=== PATIENT | male | born 1965 | race Caucasian/White ===

== ENCOUNTER 2022-10-29 08:04 | Outpatient (CLI) | payer BC, SELFPAY ==
[2022-10-29 08:28] VITALS: BMI 29.2
--- NOTE | 2022-10-29 08:29 | NMCV_ITS ---
NM lulu perf SPECT r/s* [id number] Jonathan Jett Age: 57 Gender: M : 1965 Exam Date: 10/29/2022 09:11 Ordering Phys: Fortunato Hinojosa DO Technologist: SEBASTIAN Adhikari Exam Location: [facility] Indications: SHORTNESS OF BREATH STRESS TEST Please see separate stress test report in [facility] for full findings IMAGE PROTOCOL Rest/Stress 1 Exercise Day Radiopharmaceutical Dose (mCi) Administration Site Administered by Rest: Tc-99m 10.9 IV SEBASTIAN Unger Sestamibi Stress:Tc-99m 33.0 IV SEBASTIAN Unger Sestamibi Rest: 29-Oct-2022 60 Discovery 630 Stress: 29-Oct-2022 15 Discovery 630 Radiopharmaceutical was injected at 86 % maximum heart rate. Images obtained in supine and prone position. SPECT RESULTS Technical Quality: Excellent Raw Data Analysis: Normal Image Corrections: No attenuation or motion correction applied Summed Stress Score: 7 Summed Rest Score: 3 Summed Difference Score: 5 PERFUSION FINDINGS Small sized reversible perfusion abnormality of moderate severity of basal to mid inferior and basal to mid inferolateral artis on stress images. FUNCTIONAL RESULTS (calculated via Gated SPECT) Stress Image LV EF (%): 82 Stress EDV (mL):118 TID: 0.97 Stress ESV (mL):21 FUNCTIONAL FINDINGS: The left ventricle is normal in size. Transient Ischemia Dilatation of 0.97. The left ventricular ejection fraction is normal with a value of 82%. There seems to be hypokinesis basal inferior wall IMPRESSIONS 1. Small sized reversible perfusion abnormality of moderate severity of basal to mid inferior and basal to mid inferolateral artis. 2. This may represent small area of ischemia in right coronary artery/circumflex artery territory. 3. The left ventricular ejection fraction is normal with a value of 82%. 4. There seems to be hypokinesis basal inferior wall. 5. Excellent exercise tolerance with no EKG changes with exercise. Refer to separate report for details. Jael Young MD (Electronically Signed) Final Date: 05 November 2022 12:36 S
--- NOTE | 2022-10-29 08:29 | ECG_ITS ---
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 Interpretive Statements NAME OF STUDY: EXERCISE SESTAMIBI STRESS TEST INDICATION: Dyspnea on Exertion Baseline blood pressure of 144/80 mm Hg, heart rate 77 beats per minute and oxygen saturation 98%. EKG showed sinus rhythm, normal axis with normal ST-Ts. The patient exercised for 10 minutes 16 seconds on a standard Vipin protocol. Patient attained a maximum heart rate of 151 beats per minute(91 % of the maximum predicted heart rate) with a blood pressure at the peak exercise of 191/126 mm Hg saturation 96%. The EKG at the peak exercise revealed sinus tachycardia with no significant ST-T wave changes. Patient did not have any chest pain or any significant arrhythmis with the exercise During the recovery phase, there were no new changes. Blood pressure at the end of the recovery phase was 166/81 mm Hg with a heart rate of 91 beats per minute and saturation of 98%. CONCLUSION: 1. Normal EKG response to treadmill exercise. 2. No exercise-induced chest pain or cardiac arrhythmia. 3. Excellent exercise tolerance, attained a maximum of 13.5 METs. 4. Baseline hypertension with normal response to exercise. 5. Perfusion scan will be documented separately. Electronically Signed On 11-05-2022 12:31:26 CDT by Jael Young M.D. [email or web address]
[2022-10-29 10:08] VITALS: BP 175/72; PULSE 83
== END 2022-10-29 08:05 | disposition home or self-care (01) ==
LOC: CDL 08:05
PROVIDERS: PCP Internal Medicine; Visit Provider Internal Medicine
DX: R06.09 Other forms of dyspnea (principal); R94.8 Abnormal results of function studies of other organs and systems
CPT/HCPCS: 36415; 78452; 93017; A9500

== ENCOUNTER → 2022-12-16 14:23 | Outpatient (BNVA) | payer BC, SELFPAY | PROVIDERS: PCP Internal Medicine; Visit Provider Internal Medicine | DX: R07.9 Chest pain, unspecified (principal) | CPT/HCPCS: 93005 ==

== ENCOUNTER 2022-12-28 16:47 | Outpatient (CLI) | payer BC, SELFPAY ==
[2022-12-28 17:31] LABS: Basophils % 0.1 %; Eosinophils # 0.1 10^3/uL (0.0-0.8); Eosinophils % 1.8 %; Hematocrit 41.9 % (37-53); Lymphocytes # 1.6 10^3/uL (0.8-4.8); Lymphocytes % 22.5 %; Mean Corpuscular HGB Conc 32.7 g/dL (30-55); Mean Corpuscular Hemoglobin 27.3 pg (27-33); Mean Corpuscular Volume 83.6 fl (82-101); Mean Platelet Volume 10.7 fL (7.4-10.4); Monocytes # 0.6 10^3/uL (0.2-0.9); Monocytes % 8.2 %; Neutrophils # 4.87 10^3/uL (1.8-7.7); Nucleated Red Blood Cells % 0 %; Platelet Count 258 10^3/cmm (157-399); Red Blood Count 5.01 10^6/uL (3.85-5.65); Red Cell Distribution Width 13.4 % (12.1-15.1); White Blood Count 7.28 10^3/uL (3.29-11.43)
[2022-12-28 17:52] LABS: INR 0.97 (0.83-1.21); Prothrombin Time (Patient) 13.2 Seconds (12.0-15.1)
[2022-12-28 17:54] LABS: Blood Urea Nitrogen 21 mg/dL (6-20); Calcium 9.8 mg/dL (8.5-10.5); Carbon Dioxide 25 mmol/L (22-29); Chloride 103 mmol/L (98-107); Glomerular Filtration Rate 172.6 mL/min (90-130); Glucose 173 mg/dL (65-115); Osmolality Calculated 297 mOsm/kg (285-295); Sodium 140 mmol/L (136-145)
== END 2022-12-28 16:48 | disposition home or self-care (01) ==
LOC: LAB 16:50
PROVIDERS: PCP Internal Medicine; Visit Provider Internal Medicine
DX: R07.9 Chest pain, unspecified (principal)
CPT/HCPCS: 80048; 85025; 85610

== ENCOUNTER 2022-12-30 14:06 | Outpatient (CLI) | payer BC, SELFPAY ==
--- NOTE | 2022-12-30 14:30 | USCV_ITS ---
Jonathan Jett Age: 57 Gender: M : 1965 Exam Date: 12/30/2022 14:31 Ordering Phys: Delbert Rick M.D ([email or web address]) Technologist: JUNAID Exam Location: [facility] [place] Indication: SHORTNESS OF BREATH BP: 130 / 80 HR: 84 Rhythm: Sinus Technical Quality: Adequate MEASUREMENTS (Male / Female) Normal Values 2D ECHO LVOT Diameter 2.0 cm LV Ejection Fraction MOD 2C 58.8 % LV Ejection Fraction 2C AL 61.9 % LA Diameter 3.4 cm LA Width 4.0 cm LA Height 4.6 cm RA Width 3.5 cm RA Height 4.8 cm Aorta at Sinotubular Diameter 2.3 cm IVC Diameter 2.0 cm M-MODE Aortic Annulus Diameter 2.8 cm LA Ao Ratio MM 1.1 MV E Point Septal Separation 0.7 cm DOPPLER AV Peak Velocity 141.0 cm/s LVOT Peak Velocity 108.0 cm/s AV Area Cont Eq vti 2.5 cm squared AV Area Cont Eq pk 2.4 cm squared MV Peak Velocity 99.0 cm/s MV Area PHT 3.1 cm squared Mitral E to A Ratio 0.9 MV E' Velocity 36.6 cm/s Mitral E to MV E' Ratio 9.7 Mitral E to LV E' Lateral Ratio 8.6 Mitral E to LV E' Septal Ratio 11.2 TR Peak Velocity 160.9 cm/s TR Peak Gradient 10.4 mmHg TR Mean Velocity 141.8 cm/s TR Mean Gradient 8.3 mmHg TR Velocity Time Integral 38.4 cm TV Peak E Velocity 45.0 cm/s Right Atrial Pressure 3.0 mmHg Pulmonary Artery Systolic Pressu 13.4 mmHg PV Peak Velocity 126.0 cm/s RV Acceleration Time 0.1 s RV Ejection Time 0.3 s RV AcT/ET 0.4 FINDINGS Left Ventricle Left ventricle is normal in size. LV systolic function is normal with EF of 55 to 60%. No regional wall motion abnormalities are seen. Right Ventricle Normal in size and function Right Atrium Normal in size Left Atrium Normal in size Mitral Valve Structurally normal mitral valve. Trace mitral regurgitation. Aortic Valve Structurally normal aortic valve. No significant stenosis or regurgitation. Tricuspid Valve Mild tricuspid regurgitation. Insufficient TR jet to evaluate RVSP. Pulmonic Valve Not well visualized Pericardium Normal Aorta Normal in size IVC Appears to be normal CONCLUSIONS LV systolic function is normal with EF of 55 to 60%. Trace mitral regurgitation Mild tricuspid regurgitation. No comparison studies are available Delbert Rick MD (Electronically Signed) Final Date: 03 January 2023 14:44 S
== END 2022-12-30 14:07 | disposition home or self-care (01) ==
PROVIDERS: PCP Internal Medicine; Visit Provider Internal Medicine
DX: R06.02 Shortness of breath (principal); I07.1 Rheumatic tricuspid insufficiency
CPT/HCPCS: 93306

== ENCOUNTER 2022-12-31 05:59 | Outpatient (CLI) | payer BC, SELFPAY ==
[2022-12-31] VITALS (8 sets, daily range): BP systolic 140–169; BP diastolic 80–101; PULSE 67–89; RESP 12–21; TEMP 36.7; O2SAT 97–99
--- NOTE | 2022-12-31 06:00 | XACV_ITS ---
Exam Room: 2 Ht: 193 cm Wt: 115 kg BSA: 2.51 m2 Gender: Male : 1965 Any Known Allergies: Other Exam Priority: Routine Procedure(s): Procedure Description: Diagnostic procedure Procedure Description: PCI procedure Procedure Description: Drug Eluting Coronary Stent Procedure Description: PTCA Procedure Description: Miscellaneous Procedure Description: ACT Procedure Description: Coronary Angiography Diagnostic Cath Status: Elective Diagnostic Findings * INDICATION: Chest pain/abnormal stress test. * Left Main has no significant disease. * Circumflex artery has distal diffuse disease. * Mid Left Anterior Descending: minimal 30% stenosis, SIS: 3 flow. * Proximal Right Coronary Artery to Mid Right Coronary Artery: critical 95% stenosis, SIS: 3 flow. * Mid Right Coronary Artery: obstructive 70% stenosis, SIS: 3 flow. * First Obtuse Marginal Branch Segment: severe 90% stenosis, SIS: 3 flow. * Coronary angiography shows right dominance. PCI Status: Elective PCI Indication: Other Interventional Findings * PROCEDURE DETAIL: We engaged RCA with JR4 guide catheter. IV heparin was administered to maintain anticoagulation. 0.014 run-through guidewire was used to cross the RCA stenosis and was put in distal vessel. We predilated proximal artery stenosis with 2.5 x 12 mm semicompliant balloon. This was followed by placement of 3.5 x 15 mm resolute Leland drug-eluting stent. We postdilated the stent with 3.5 x 12 mm NC balloon. We then turned our attention to OM stenosis. XB 3.5 guide catheter was used to engage the left main artery. Run-through wire was used to cross OM stenosis. We then put a 2.5 x 12 mm resolute Phyllis drug-eluting stent. At this time a final angiogram was performed that showed excellent stent expansion, no residual stenosis in SIS-3 flow. Guidewire and guide catheter were removed. 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 * Proximal Right Coronary Artery to Mid Right Coronary Artery: 95% stenosis treated with a AB TREK 2.50X12 RX BALLOON, MDT R PHYLLIS 3.5X15 AV, and MDT NC EUPHORA RX 3.38M06IM BALLOON. 0% residual stenosis, SIS: 3 flow. * Mid Right Coronary Artery: 70% stenosis treated with a MDT NC EUPHORA RX 3.16U20LK BALLOON, MDT R PHYLLIS 3.5X15 AV, and MDT NC EUPHORA RX 3.33U99AH BALLOON. 0% residual stenosis, SIS: 3 flow. * First Obtuse Marginal Branch Segment: 90% stenosis treated with a MDT R PHYLLIS 2.5X12 AV. 0% residual stenosis, SIS: 3 flow. Conclusions 1. Critical stenosis of proximal to mid RCA s/p PCI with 1 stent. Severe stenosis of mid RCA s/p successful revascularization with 1 stent.. 2. Severe OM stenosis s/p PCI with 1 stent. 3. Proximal Right Coronary Artery to Mid Right Coronary Artery was treated with a Balloon, Drug Eluting Stent, and Balloon. 4. Mid Right Coronary Artery was treated with a Balloon, Drug Eluting Stent, and Balloon. 5. First Obtuse Marginal Branch Segment was treated with a Drug Eluting Stent. Recommendations * Dual antiplatelet therapy with aspirin and plavix for atleast 1 year. * High intensity statin therapy. * Outpatient cardiology follow up in 4 weeks. Interventional RX Recommendation: PCI w/o planned CABG Diagnostic RX Recommendation: PCI w/o planned CABG Anticoagulation: Heparin Pressures Phase:Rest AO : 142 / 79 ( 104 ) @ 8:37:00 AM 143 / 141 ( 104 ) @ 8:58:00 AM 90 / 54 ( 71 ) @ 9:04:00 AM 93 / 58 ( 75 ) @ 9:11:00 AM 132 / 125 ( 87 ) @ 9:33:00 AM 89 / 60 ( 75 ) @ 9:37:00 AM Clinical Evaluation EBL: 5mL-10mL Procedural Details Procedure Consent Obtained. Current Diagnosis : Chest Pain. Pre-Procedure Time Out. Identified patient by full name and date of as verbalized by the patient/guarantor. Does the consent match the physician's order: Yes. Accurate & Complete Informed Consent: Yes. Inpatient/Outpatient History & Physical on Chart: Yes. If H&P is completed, is and addenduem needed: No; If yes, is the addendum complete: N/A. Visualize and Verify Site with Patient/Guarantor: N/A. Relevant Radiology Images available: Yes. Pre-op teaching completed and patient verbalized understanding. The risks, benefits, and alternatives of sedation and/or procedure were discussed by physician. The patient agrees to continue. Procedure started. [facility] Clinical Fraility Score: 3: Managing Well. Finance Analyst Indications: Worsening Angina. Chest Pain Symptom Assessment: Typical Angina Symptoms. Physician arrived. Physician scrubbed in. Immediate Pre-Procedure Time Out. Correct Patient: Yes; Correct Procedure: Yes; Correct Site: Yes; Correct Patient Position: Yes; Correct Supplies: Yes; Dried Flammable Prep: Yes; Blood Products Available: N/A;. Lidocaine 1% infiltrated to the right radial. Arterial access obtained. A 5 puerto rican TIG catheter in over wire. Catheter removed over the exchange wire. A 5 puerto rican JR4 catheter in over wire. Multiple views taken of right coronary artery. Catheter removed over the exchange wire. A 5 puerto rican JL3.5 catheter in over wire. Baseline sample Acquired. HR: 74 BPM. PERRLA. 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 Lungs clear x 5 lobes. IV Site on Arrival: 20 gauge in the left anticubital. IV Fluids: 0.9% NaCl at KVO. 0 mL infused prior to laboratory clerk. Pre Procedural Pulses: bilateral dorsalis pedis was 3+. Pre Procedural Pulses: bilateral posterior tibial was 3+. Pre Procedural Pulses: bilateral radial was 3+. Oxygen started at 2liters/min via nasal canula. Catheter removed over the exchange wire. A TR Band was successful obtaining hemostatsis at the Right Radial artery insertion site. Lidocaine 1% infiltrated to the right groin. Arterial access obtained with micropuncture set. Lidocaine 1% infiltrated to the right groin. A 5 puerto rican JL3.5 catheter in over wire. Multiple views taken of left coronary artery. Catheter removed over the standard wire. 6 puerto rican JR 4 guide catheter was inserted over the wire. Runthrough guidewire was advanced through the guide catheter to lesion in the prox RCA. Inflation number : 1 A AB TREK 2.50X12 RX BALLOON was prepped and advanced across the Prox RCA , then inflated to 8 ADIA for 0:21 seconds. Balloon out. Inflation Number : 2 A MDT R PHYLLIS 3.5X15 AV -Lot Number# _[id number] EXP: 08/13/2024 was prepped and advanced across the Prox RCA. The stent was deployed at 12 ADIA for 0:22 seconds. Stent balloon out over wire. Results checked. ACT drawn. Results out of range high. seconds. Therapeutic limits - pre-heparin administration 90-150 seconds and monitoring heparin during a vascular procedure >250 seconds. Inflation number : 1 A MDT NC EUPHORA RX 3.74N11ZO BALLOON was prepped and advanced across the Mid RCA , then inflated to 12 ADIA for 0:19 seconds. Inflation number: 2 The MDT NC EUPHORA RX 3.54G28OT BALLOON was reinflated across the Mid RCA, to 15 ADIA for 0:14 seconds. Inflation number: 3 The MDT NC EUPHORA RX 3.14C65GI BALLOON was reinflated across the Prox RCA, to 12 ADIA for 0:16 seconds. Balloon out. Mat Kareem Pugh as monitor. Inflation Number : 3 A MDT R PHYLLIS 3.5X15 AV -Lot Number# [id number] was prepped and advanced across the Mid RCA. The stent was deployed at 12 ADIA for 0:24 seconds. EXP: 08/28/24. Results checked. Stent balloon out over the wire. Inflation number : 4 A MDT NC EUPHORA RX 3.41L22RF BALLOON was prepped and advanced across the Mid RCA , then inflated to 20 ADIA for 0:22 seconds. Inflation number: 5 The MDT NC EUPHORA RX 3.15R91YL BALLOON was reinflated across the Mid RCA, to 12 ADIA for 0:15 seconds. Balloon out. Results checked. ACT drawn. Results 253 seconds. Therapeutic limits - pre-heparin administration 90-150 seconds and monitoring heparin during a vascular procedure >250 seconds. Wire out. Guide catheter out. 6 puerto rican XB 3.5 guide catheter was inserted over the wire. Guide kinked. Removed over the wire. a new 6 puerto rican XB 3.5 guide catheter was inserted over the wire. Unable to advance. Removed over the wire. Sheath exchanged/replaced with a new 6 fr sheath. A Right femoral angiogram was performed. 6 puerto rican XB 3.5 guide catheter was inserted over the wire. Unable to advance. Removed over the wire. a new 6 puerto rican XB 3.5 guide catheter was inserted over the wire. Unable to advance. Removed over the wire. 6 Macedonian cordis sheath exchanged for a 6 fr exchange glidesheath. 6 puerto rican XB 3.5 guide catheter was inserted over the wire. Guide seated in the LCS. Runthrough guidewire was advanced through the guide catheter to lesion in the OM. Guidewire advanced across lesion. Inflation Number : 1 Korin Gruber PHYLLIS 2.5X12 AV -Lot Number# _[id number] EXP: 08/01/2024 was prepped and advanced across the 1st Ob Ana. The stent was deployed at 12 ADIA for 0:22 seconds. Johanny Pugh relieving Mat Kareem as monitor. Stent balloon out over wire. Results checked. Wire out. Results checked. ACT drawn. Results 367 seconds. Therapeutic limits - pre-heparin administration 90-150 seconds and monitoring heparin during a vascular procedure >250 seconds. Guide catheter out. Physician scrubbed out. A Suture was successful obtaining hemostatsis at the Right Femoral artery insertion site. Sheath(s) sutured into position with 2-0 silk and sterile 4x4's and Op-site applied over the site. No oozing or signs and symptoms of hematoma noted. Arterial sheath flushed and connected to tranducer and pressure bag with heparinized saline. Post Procedure: Pulses reassessed and unchanged. PERRLA. 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 No VTE prophylaxis required. Medication's Wasted: Heparin = 2000 units. Total IV fluids: 100 mL. Post-op diagnosis: CAD. Complications: None. Estimated blood loss: 5mL-10mL. Responsiveness - Normal response to verbal stimuli; alert and oriented, PERRLA. Vital chart was stopped. Airway - Unaffected, no intervention required; spontaneous ventilation. Circulation: W/N/L, pulses unchanged. Nausea/Vomiting: No. Procedure completed. Patient transferred by bed to CPRU. Access Site Site: Right Radial artery Sheath Size: 6 Fr Hemostasis Method: TR Band Hemostasis Success: Successful Site: Right Femoral artery Sheath Size: 6 Fr Hemostasis Method: Suture Hemostasis Success: Successful Procedure Medications Start: 7:26 AM Stop: 7:26 AM Medication: Versed Amount: 1 mg Route: I.V. Start: 7:26 AM Stop: 7:26 AM Medication: Fentanyl Amount: 50 mcg Route: I.V. Start: 7:33 AM Stop: 7:33 AM Medication: Versed 1 mg and Fentanyl 25 mcg Amount: 1 Route: I.V. Start: 7:34 AM Stop: 7:34 AM Medication: Nitrogylcerin Amount: 200 mcg Route: I.A. Start: 7:37 AM Stop: 7:37 AM Medication: Heparin Amount: 5000 units Route: I.V. Start: 7:46 AM Stop: 7:46 AM Medication: Nitrogylcerin Amount: 300 mcg Route: I.A. Start: 7:46 AM Stop: 7:46 AM Medication: Fentanyl Amount: 25 mcg Route: I.V. Start: 7:47 AM Stop: 7:47 AM Medication: Versed Amount: 1 mg Route: I.V. Start: 8:02 AM Stop: 8:02 AM Medication: Heparin Amount: 5000 units Route: I.V. Start: 8:29 AM Stop: 8:29 AM Medication: Heparin Amount: 2000 units Route: I.V. Start: 8:34 AM Stop: 8:34 AM Medication: Versed Amount: 1 mg Route: I.V. I, the attending physician, have reviewed and verified all procedure medications. Yes, all medications given per verbal order History/Risk Factors Hypertension: Yes Dyslipidemia: Yes Peripheral Arterial Disease (PAD): No Myocardial Infarction (TX): No Obesity: No Renal Disease: No Tobacco Use: Former Prior Interventions PCI: No CABG: No Valve Surgery: No Report Signatures Finalized by Delbert Rick MD on 01/04/2023 10:47 AM
[2022-12-31] MEDS: aspirin 325 mg Tablet PO (06:15)
[2022-12-31] MEDS: diphenhydrAMINE 50 mg Capsule PO (06:15)
[2022-12-31 07:07] LABS: Glucose Point of Care 131 mg/dL (70-110)
--- NOTE | 2022-12-31 07:24 | P.HPUD_ITS ---
Surgery/Procedure H&P Update DATE OF PROCEDURE: December 31, 2022 DATE H&P PERFORMED: 12/16/22 H&P UPDATE INFORMATION: I have reviewed H&P completed within last 30 days, I have examined patient prior to procedure and No changes to prior documentation PREOP DIAGNOSIS: Chest pain/abnormal stress test PRIMARY INDICATION FOR PROCEDURE: Chest pain/abnormal stress test PLANNED PROCEDURE: Operation Date: 12/31/22 07:00 Proposed Procedures p [facility] 02024,R94.39(Left) - Delbert Rick M.D Possible percutaneous coronary intervention PATIENT REASSESSED PRIOR TO SEDATION, WITH NO CHANGE NOTED: Yes PHYSICAL EXAM: alert, oriented x 3, clear to auscultation bilaterally and regular rate & rhythm AIRWAY EVAL/ANESTHESIA PLAN: normal airway, ASA III, Local Anesthesia, Risks, benefits & alternatives of sedation and/or procedure discussed and Patient agrees to continue as planned ADDITIONAL INFORMATION: Moderate sedation
--- NOTE | 2022-12-31 09:36 | PC.NURSE ---
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 TR Band to patients right wrist clean, dry, et intact. No drainage or hematoma noted. Sheath in place to patients right groin connected to pressure bag. Dsg over sheath clean, dry, et intact. No drainage or hematoma noted. Vital WDL. No c/o pain or discomfort. Will continue to monitor. 0930: Transfer orders received. TR Band to patients right wrist clean, dry, et intact. No drainage or hematoma noted. Sheath in place to patients right groin connected to pressure bag. Dsg over sheath clean, dry, et intact. No drainage or hematoma noted. Vital WDL. No c/o pain or discomfort. Report give to ARNULFO Hernández. Patient transferred to CSU from CPRU via hospital bed. All belongings sent with patient.
--- NOTE | 2022-12-31 09:49 | PM.MISC ---
Miscellaneous Note Purpose of Documentation: Brief procedure note Note: Patient had PCI of proximal and mid RCA with 2 stents. Also had PCI of OM 1 with 1 stent
--- NOTE | 2022-12-31 10:08 | PC.NURSE ---
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 Rick came to bedside v.o. to remove sheath once PTT WNL
[2022-12-31 11:55] LABS: Partial Thromboplastin Time 41.5 SECONDS (23.9-36.7)
[2023-01-01] VITALS: BP 122/75; PULSE 84; RESP 17; TEMP 36.8; O2SAT 96
[2023-01-01 04:00] VITALS: BP 115/70; PULSE 70; RESP 17; TEMP 36.5; O2SAT 92
[2023-01-01 04:25] LABS: Eosinophils # 0.1 10^3/uL (0.0-0.8); Eosinophils % 1.9 %; Lymphocytes # 1.4 10^3/uL (0.8-4.8); Lymphocytes % 20.4 %; Mean Corpuscular HGB Conc 31.9 g/dL (30-55); Mean Corpuscular Hemoglobin 26.7 pg (27-33); Mean Corpuscular Volume 83.7 fl (82-101); Mean Platelet Volume 10.4 fL (7.4-10.4); Monocytes # 0.7 10^3/uL (0.2-0.9); Neutrophils # 4.57 10^3/uL (1.8-7.7); Neutrophils % 67.4 %; Nucleated Red Blood Cells % 0 %; Platelet Count 204 10^3/cmm (157-399); Red Blood Count 5.02 10^6/uL (3.85-5.65); Red Cell Distribution Width 13.4 % (12.1-15.1); White Blood Count 6.78 10^3/uL (3.29-11.43)
[2023-01-01 04:47] LABS: Anion Gap 12.9 (5-19); Blood Urea Nitrogen 15 mg/dL (6-20); Calcium 9.1 mg/dL (8.5-10.5); Carbon Dioxide 27 mmol/L (22-29); Chloride 104 mmol/L (98-107); Glomerular Filtration Rate 172.6 mL/min (90-130); Glucose 138 mg/dL (65-115); Osmolality Calculated 293 mOsm/kg (285-295); Potassium 3.9 mmol/L (3.5-5.1); Sodium 140 mmol/L (136-145)
[2023-01-01 07:44] LABS: Glucose Point of Care 162 mg/dL (70-110)
[2023-01-01 07:57] VITALS: BP 131/81; PULSE 80; RESP 16; TEMP 36.8; O2SAT 95
--- NOTE | 2023-01-01 07:57 | P.DS_ITS ---
Discharge Providers Date of Admission: 12/31/2022 Date of Discharge: January 01, 2023 Attending Provider at Discharge: Delbert Rick M.D Primary Care Provider: Fortunato Hinojosa DO Reason for Visit Reason for Visit: R94.39 Brief History: 57-year-old man with past medical history of diabetes, hyperlipidemia and hypertension, family history of CAD who has been referred for evaluation of dyspnea on exertion and chest tightness.? According to patient has been having the symptoms for several weeks. These are both exertional and non-exertional.? He had stress test that showed ischemia in left circumflex artery/RCA territory .? Blood pressure today is controlled.? He is compliant with medications.? Hospital Course Hospital Course Patient underwent successful revascularization of RCA with 2 stents and OM1 with 1 stent. Patient was observed overnight and he did well. Patient was discharged home in a stable condition on dual antiplatelet therapy. Physical Exam Narrative: GENERAL: Patient is alert, awake and oriented x3. [] NECK: No jugular vein distension. [] HEENT: No cyanosis. No icterus. No pallor. [] HEART: Regular S1 and S2. No murmur, rub or gallop. [] LUNGS: Clear to auscultate bilaterally. [] CENTRAL NERVOUS SYSTEM: Grossly nonfocal. [] EXTREMITIES: Lower extremities with 1+ edema bilaterally. Discharge Data Studies Completed and Pending Pending at discharge Category Date Time Status PR[employer] HELPER request for service Routine Exams 12/31/22 06:00 Taken Laboratory Results WBC 6.78 10^3/uL (3.29-11.43) 01/01/23 04:03 RBC 5.02 10^6/uL (3.85-5.65) 01/01/23 04:03 Hgb 13.40 g/dL (11.27-16.99) 01/01/23 04:03 Hct 42.0 % (37-53) 01/01/23 04:03 MCV 83.7 fl (82-101) 01/01/23 04:03 MCH 26.7 pg (27-33) L 01/01/23 04:03 MCHC 31.9 g/dL (30-55) 01/01/23 04:03 RDW 13.4 % (12.1-15.1) 01/01/23 04:03 Plt Count 204 10^3/cmm (157-399) 01/01/23 04:03 MPV 10.4 fL (7.4-10.4) 01/01/23 04:03 Neut % (Auto) 67.4 % 01/01/23 04:03 Lymph % (Auto) 20.4 % 01/01/23 04:03 [place] % (Auto) 10.0 % 01/01/23 04:03 Eos % (Auto) 1.9 % 01/01/23 04:03 Baso % (Auto) 0.0 % 01/01/23 04:03 Neut # (Auto) 4.57 10^3/uL (1.8-7.7) 01/01/23 04:03 Lymph # (Auto) 1.4 10^3/uL (0.8-4.8) 01/01/23 04:03 [place] # (Auto) 0.7 10^3/uL (0.2-0.9) 01/01/23 04:03 Eos # (Auto) 0.1 10^3/uL (0.0-0.8) 01/01/23 04:03 Baso # (Auto) 0.0 10^3/uL (0.0-0.1) 01/01/23 04:03 Nucleated RBC % (auto) 0 % 01/01/23 04:03 Nucleated RBCs # 0.0 /100WBC 01/01/23 04:03 APTT 41.5 SECONDS (23.9-36.7) H 12/31/22 11:36 Sodium 140 mmol/L (136-145) 01/01/23 04:03 Potassium 3.9 mmol/L (3.5-5.1) 01/01/23 04:03 Chloride 104 mmol/L (98-107) 01/01/23 04:03 Carbon Dioxide 27 mmol/L (22-29) 01/01/23 04:03 Anion Gap 12.9 (5-19) 01/01/23 04:03 BUN 15 mg/dL (6-20) 01/01/23 04:03 Creatinine 0.5 mg/dL (0.7-1.2) L 01/01/23 04:03 GFR Calculation 172.6 mL/min (90-130) H 01/01/23 04:03 Glucose 138 mg/dL (65-115) H 01/01/23 04:03 POC Glucose 162 mg/dL (70-110) H 01/01/23 07:41 Calculated Osmolality 293 mOsm/kg (285-295) 01/01/23 04:03 Calcium 9.1 mg/dL (8.5-10.5) 01/01/23 04:03 Vitals Last Vital Signs Temp 97.7 F 01/01/23 04:00 Pulse 70 01/01/23 04:00 Resp 17 01/01/23 04:00 BP 115/70 01/01/23 04:00 Pulse Ox 92 01/01/23 04:00 O2 Del Method Room Air 01/01/23 04:00 Discharge Plan Discharge Patient Disposition: Home Prescriptions: New clopidogrel 75 mg Tablet 75 mg PO DAILY Qty: 90 3RF pantoprazole 20 mg tablet,delayed release (DR/EC) 20 mg PO DAILY Qty: 60 2RF Continued Jardiance 25 mg tablet 25 mg PO DAILY meloxicam 15 mg tablet 15 mg PO DAILY levothyroxine 50 mcg capsule 50 mcg PO DAILY gemfibrozil 600 mg tablet 600 mg PO BID aspirin [Adult Aspirin Regimen] 81 mg tablet,delayed release (DR/EC) 81 mg PO DAILY niacinamide 500 mg tablet extended release 500 mg PO DAILY hydrocodone-acetaminophen 7.5-325 mg/15 mL solution 15 ml PO Q6H PRN (Reason: Pain) cinnamon bark [Cinnamon] 500 mg capsule 1,000 mg PO DAILY lutein 20 mg capsule 20 mg PO DAILY Rx Instructions: give with meal/snack calcium carbonate [Calcium 600] 600 mg calcium (1,500 mg) tablet 600 mg PO DAILY ascorbic acid (vitamin C) 1,000 mg capsule 1 g PO Q6H cyanocobalamin (vitamin B-12) 1,000 mcg capsule 1,000 mcg PO DAILY omega-3 fatty acids 1,000 mg capsule 1,000 mg PO DAILY Soluble Fiber 500 mg tablet 500 mg PO DAILY garlic 1,000 mg capsule 1,000 mg PO DAILY Multi Vitamin 1 tab PO DAILY Mcdaniel Revive 1 cap PO DAILY atorvastatin 10 mg tablet 10 mg PO DAILY Qty: 60 1RF Held metformin 1,000 mg tablet 1,000 mg PO BID Hold Instructions: Resume on 01/03/23. Discontinued omeprazole 10 mg capsule,delayed release(DR/EC) 10 mg PO DAILY Discharge Orders: Discharge Order (Routine); Ordered 01/01/23 Ordered By: Delbert Rick Referrals: Delbert Rick M.D [Physician] - (Your Dr. Rick follow up appointment will be scheduled while you are at your Trista Vergara appointment. Thank you.) Trista Vergara FNP [Nurse Practitioner] - 01/13/23 9:15 am Diet: Cardiac and Diabetic Patient Instructions: Clopidogrel (By mouth) (Plavix), Pantoprazole (By mouth) (Protonix), Coronary Artery Disease (DC), Coronary Intravascular Stent Placement (DC), Chest Pain Stoplight, Post Angiogram Home Care Instructions Stand Alone Forms: Work/School Release Discharge Date/Time: 01/01/23 09:55 Discharge Attestations Time Spent in Discharge Care*: less than 30 min Quality Metrics Clinical Quality Measures [ No reported AMI, CVA or VTE this stay] Coding Level of Care Code Acute Code for Chg Fwd Diagnoses
[2023-01-01] MEDS: atorvastatin 40 mg Tablet 20 MG PO (08:04)
[2023-01-01] MEDS: levothyroxine 50 mcg Tablet PO (08:04)
[2023-01-01] MEDS: aspirin 81 mg EC Tablet PO (08:04)
[2023-01-01] MEDS: clopidogrel 75 mg Tablet PO (08:04)
--- NOTE | 2023-01-01 08:10 | ECG_ITS ---
[facility] Test Date: 2023-01-01 Pat Name: Jonathan Jett Department: Room: 111 Gender: Male Blog Writer: : 1965 Requested By: Delbert Rick Order Number: [id number] Chhaya MD: Neda Ortega M.D. Measurements Intervals [place] Rate: 84 P: 28 [place]: 164 QRS: 72 QRSD: 106 T: 46 QT: 358 QTc: 425 Interpretive Statements SINUS RHYTHM Compared to ECG 12/16/2022 14:31:52 Right-axis deviation no longer present Electronically Signed On 01-01-2023 19:16:36 CDT by Neda Ortega M.D. [id number]
--- NOTE | 2023-01-01 09:00 | PC.NURSE ---
Pt is ambulating down hallways, denies any chest pain or discomfort.
== END 2023-01-01 09:55 | disposition home or self-care (01) ==
LOC: CCL 06:04 → CSU 10:08
PROVIDERS: PCP Internal Medicine; Visit Provider Internal Medicine
DX: I25.10 Atherosclerotic heart disease of native coronary artery without angina pectoris (principal); I10 Essential (primary) hypertension; E78.5 Hyperlipidemia, unspecified; Z87.891 Personal history of nicotine dependence; E11.9 Type 2 diabetes mellitus without complications; Z79.82 Long term (current) use of aspirin; Z79.84 Long term (current) use of oral hypoglycemic drugs; K21.9 Gastro-esophageal reflux disease without esophagitis
CPT/HCPCS: 36415; 36416; 80048; 82962; 85025; 85347; 85730; 93005; 93454; 96361; 96365; 99152; 99153; C1725; C1769; C1874; C1887; C1894; C9600; C9601; J1644; J2250; J3010; J3490; J7030; Q0163; Q9967

== ENCOUNTER → 2023-01-13 11:36 | Outpatient (BNVA) | payer BC, SELFPAY | PROVIDERS: PCP Internal Medicine; Visit Provider Internal Medicine Cardiovascular Disease | DX: I25.10 Atherosclerotic heart disease of native coronary artery without angina pectoris (principal); Z98.890 Other specified postprocedural states; R07.9 Chest pain, unspecified; E11.9 Type 2 diabetes mellitus without complications; E78.5 Hyperlipidemia, unspecified | CPT/HCPCS: 36415; 80048 ==

== ENCOUNTER 2024-05-20 09:05 | Observation (INO) | payer OTHER, SELFPAY ==
[2024-05-20] VITALS (13 sets, daily range): BP systolic 119–164; BP diastolic 62–90; PULSE 71–99; RESP 16–18; TEMP 36.6–37.1; O2SAT 93–98; BMI 30.7
--- NOTE | 2024-05-20 09:11 | ECG_ITS ---
[employer] Test Date: 2024-05-20 Pat Name: Jonathan Jett Department: Room: Gender: Male Director Of Construction: : 1965 Requested By: Misael Magana Order Number: [id number] Reading MD: GERARD MUNSON Measurements Intervals [place] Rate: 87 P: -10 [place]: 161 QRS: 68 QRSD: 102 T: 41 QT: 349 QTc: 421 Interpretive Statements SINUS RHYTHM Compared to ECG 01/01/2023 08:10:05 No significant changes Electronically Signed On 05-21-2024 20:59:40 TUB MENDER by GERARD MUNSON [email or web address] [id number]
--- NOTE | 2024-05-20 09:30 | XRR_ITS ---
PROCEDURE INFORMATION: Exam: XR Chest Exam date and time: 05/20/2024 9:44 AM Age: 59 years old Clinical indication: Pain; Chest pressure; Prior surgery; Surgery date: 6+ months; Surgery type: Cardiac stents; Additional info: Chest pain TECHNIQUE: Imaging protocol: Radiologic exam of the chest. Views: 1 view. COMPARISON: CR XR chest 2V* [id number] 12/27/2023 3:00 PM FINDINGS: Lungs: There is poor ventilation of the lungs, accounting for mild diffuse increase in pulmonary parenchymal density. There is no evidence of focal pulmonary consolidation. Pleural spaces: Unremarkable. No pleural effusion. No pneumothorax. Heart/Mediastinum: Unremarkable. No cardiomegaly. Bones/joints: Mild degenerative disease of bilateral acromioclavicular joints. There are mild degenerative changes of the glenohumeral joint. XR/XR chest 1V portable [id number] IMPRESSION: No acute cardiopulmonary process.
--- NOTE | 2024-05-20 09:40 | ED_ITS ---
HPI - Chest Pain 2 General: Chief Complaint: Chest Pain Stated Complaint: chest pain Time Seen by Provider: 05/20/24 09:29 History of Present Illness: 59-year-old male with a known history of coronary disease presents emergency room said 4 episodes of chest pain this week they have occurred while at rest resolved spontaneously has not taken anything for them prior to this morning. They usually last about 20 to 30 minutes. This morning lasting longer so he took a single nitro which did lower his blood pressure and relieved his chest pain. He has had several episodes of chest pain this week he reports all of them are accompanied by elevated blood pressure. In December 2022 patient had 3 stents placed in 1 vessel dilated without stent placement. He has been on dual antiplatelet therapy and statin since he follows along with cardiology. He is not having chest pain at this time. Associated symptoms: Deny abdominal pain, dyspnea or fever(s) Related Data Home Medications ?Medication ?Instructions ?Recorded ?Confirmed aspirin 81 mg tablet,delayed 81 mg PO DAILY 12/23/21 0 05/20/24 release (Adult Aspirin Regimen) empagliflozin 25 mg tablet 25 mg PO DAILY 12/23/2112/04 (Jardiance) gemfibrozil 600 mg tablet 600 mg PO BID 12/23/2105/20 hydrocodone 7.5 mg-acetaminophen 15 ml PO Q6H PRN Pain 12/23/21 05/20/24 325 mg/15 mL oral solution levothyroxine 50 mcg capsule 50 mcg PO DAILY 12/23/21 05/20/24 meloxicam 15 mg tablet 15 mg PO DAILY 12/23/2112/04 metformin 1,000 mg tablet 1,000 mg PO BID 12/23/2112/04 Held on 01/01/23. Instructions: Resume on 01/03/23. clopidogrel 75 mg tablet 75 mg PO DAILY 05/20/2412/04 multivit with minerals-folic 1 tab PO DAILY 05/20/24 0 05/20/24 acid-lycopene 0.4 mg-600 mcg tablet niacinamide 500 mg tablet 500 mg PO BID 05/20/2405/20 Previous Rx's ?Medication ?Instructions ?Recorded nitroglycerin 0.4 mg sublingual 0.4 mg sublingual Q5M PRN chest 01/13/23 tablet pain #25 tabs atorvastatin 20 mg tablet 20 mg PO DAILY #90 tabs 09/02 pantoprazole 20 mg tablet,delayed 20 mg PO DAILY #90 t abs 06/21/23 release Allergies Allergy/AdvReac Type Severity Reaction Status Date / Time niacin Allergy Mild ALGY-Redness Verified 12/20/23 15:45 of Skin Review of Systems 2 Const: Denies: fever(s) or chills Card: Reports: chest pain Resp: Denies: dyspnea GI: Denies: abdominal pain : Denies: dysuria, urinary frequency or urinary urgency Musc: Denies: neck pain or back pain Skin/Breast: Denies: rash PFSH ED 2 PFSH: Medical History Hypothyroidism CAD (coronary artery disease) GERD (gastroesophageal reflux disease) Diabetes mellitus Surgical History History of back surgery Family History Other CAD (coronary artery disease) Cancer Diabetes Hypertension Social History Smoking and tobacco/nicotine status: current every day tobacco/nicotine user (chewing tobaccl) Physical Exam 2 Const: GENERAL APPEARANCE: cooperative ORIENTATION/CONSCIOUSNESS: Yes awake, Yes oriented to person, Yes oriented to place and Yes oriented to time HENMT: COMMON NORMALS: normocephalic, atraumatic and hearing grossly normal bilaterally HEAD & SCALP: normocephalic and atraumatic Resp: COMMON NORMALS: normal respiratory effort, No retractions, No use of accessory muscles and clear to auscultation bilaterally AUSCULTATION: clear to auscultation bilaterally Cardio: COMMON NORMALS: regular rate, regular rhythm and No murmurs present (Cardio) RATE: regular rate RHYTHM: regular rhythm GI: COMMON NORMALS: Soft to palpation and No hepatosplenomegaly present A USCULTATION: Yes normoactive bowel sounds PALPATION: Yes Soft to palpation, No Tenderness to palpation present (GI), No Guarding due to palpation present (GI) and Yes No hepatosplenomegaly present Extremity: COMMON NORMALS: normal to inspection, capillary refill normal, no clubbing, cyanosis or edema, no calf tenderness and no pedal edema Neuro: SENSORIUM/ORIENTATION: Yes oriented to person, Yes oriented to place and Yes oriented to time Skin: COMMON NORMALS: no rashes or lesions noted GENERAL SKIN EXAM: no rashes or lesions noted Course 2 Vital Signs: Vital signs: Vital Signs Temperature 97.9 F 05/20/24 09:09 Pulse Rate 82 05/20/24 12:37 Respiratory Rate 17 05/20/24 09:09 Blood Pressure 149/90 05/20/24 12:53 Pulse Oximetry 94 05/20/24 12:21 Oxygen Delivery Me thod Room Air 05/20/24 11:12 MDM - Chest Pain Medical Decision Making Patient presents with essentially escalating angina is unstable. Last night he took a nitro and did have improvement is not having pain at this time is no acute changes does have a slight increase in his troponin. He has previously had angiography with stents a little over a year ago. Discussed with hospitalist and cardiology, Dr. Hudson has been consulted. Dr. Hudson is seen the patient in the department and planning to do a catheterization. Dr. Pelaez will admit admission orders written. Medical Records I reviewed the patient's medical records. Lab Data I reviewed the patient's lab results. 05/20/24 09:41 05/20/24 09:41 Radiology Impressions Chest X-Ray 05/20/24 09:30 IMPRESSION: No acute cardiopulmonary process. Laboratory Results WBC 6.06 10^3/uL (3.29-11.43) 05/20/24 09:41 RBC 4.93 10^6/uL (3.85-5.65) 05/20/24 09:41 Hgb 9.70 g/dL (11.27-16.99) L 05/20/24 09:41 Hct 35.1 % (37-53) L 05/20/24 09:41 MCV 71.2 fl (82-101) L 05/20/24 09:41 MCH 19.7 pg (27-33) L 05/20/24 09:41 MCHC 27.6 g/dL (30-55) L 05/20/24 09:41 RDW 15.9 % (12.1-15.1) H 05/20/24 09:41 Plt Count 238 10^3/cmm (157-399) 05/20/24 09:41 MPV 9.5 fL (7.4-10.4) 05/20/24 09:41 Neut % (Auto) 67.9 % 05/20/24 09:41 Lymph % (Auto) 19.3 % 05/20/24 09:41 [place] % (Auto) 8.1 % 05/20/24 09:41 Eos % (Auto) 4.0 % 05/20/24 09:41 Baso % (Auto) 0.5 % 05/20/24 09:41 Neut # (Auto) 4.12 10^3/uL (1.8-7.7) 05/20/24 09:41 Lymph # (Auto) 1.2 10^3/uL (0.8-4.8) 05/20/24 09:41 [place] # (Auto) 0.5 10^3/uL (0.2-0.9) 05/20/24 09:41 Eos # (Auto) 0.2 10^3/uL (0.0-0.8) 05/20/24 09:41 Baso # (Auto) 0.0 10^3/uL (0.0-0.1) 05/20/24 09:41 Nucleated RBC % (auto) 0 % 05/20/24 09:41 Nucleated RBCs # 0.0 /100WBC 05/20/24 09:41 Sodium 138 mmol/L (136-145) 05/20/24 09:41 Potassium 4.4 mmol/L (3.5-5.1) 05/20/24 09:41 Chloride 102 mmol/L (98-107) 05/20/24 09:41 Carbon Dioxide 22 mmol/L (22-29) 05/20/24 09:41 Anion Gap 18.4 (5-19) 05/20/24 09:41 BUN 18 mg/dL (6-20) 05/20/24 09:41 Creatinine 0.5 mg/dL (0.7-1.2) L 05/20/24 09:41 GFR Calculation 171.4 mL/min (90-130) H 05/20/24 09:41 Glucose 187 mg/dL (65-115) H 05/20/24 09:41 Calculated Osmolality 293 mOsm/kg (285-295) 05/20/24 09:41 Calcium 9.5 mg/dL (8.5-10.5) 05/20/24 09:41 Total Bilirubin 0.2 mg/dL (0.15-1.2) 05/20/24 09:41 AST 17 U/L (0-40) 05/20/24 09:41 ALT 27 U/L (0-41) 05/20/24 09:41 Alkaline Phosphatase 122 U/L (40-130) 05/20/24 09:41 Troponin T Baseline 24 ng/L (0-15) H 05/20/24 09:41 Troponin T 120 Minute 29.25 ng/L (0-15) H 05/20/24 11:38 Delta Troponin T 5.25 ABS# (0-10) 05/20/24 11:38 Total Protein 7.2 g/dL (6.6-8.7) 05/20/24 09:41 Albumin 4.7 g/dL (3.5-5.2) 05/20/24 09:41 Globulin 2.5 g/dL (1.3-4.6) 05/20/24 09:41 All radiology interpretation(s) finalized by discharge Discharge Plan Discharge Patient Disposition: Admitted As Inpatient Admit Provider: Casey Tavares Clinical Impression: Unstable angina pectoris, CAD (coronary artery disease), Diabetes mellitus, Hypothyroidism Condition: Stable Coding Level of Care Code ED Workers Compensation Claims Examiner for Tona Molina
[2024-05-20 09:45] LABS: Basophils % 0.5 %; Eosinophils # 0.2 10^3/uL (0.0-0.8); Hematocrit 35.1 % (37-53); Lymphocytes # 1.2 10^3/uL (0.8-4.8); Lymphocytes % 19.3 %; Mean Corpuscular HGB Conc 27.6 g/dL (30-55); Mean Corpuscular Hemoglobin 19.7 pg (27-33); Mean Corpuscular Volume 71.2 fl (82-101); Mean Platelet Volume 9.5 fL (7.4-10.4); Monocytes # 0.5 10^3/uL (0.2-0.9); Monocytes % 8.1 %; Neutrophils # 4.12 10^3/uL (1.8-7.7); Neutrophils % 67.9 %; Nucleated Red Blood Cells % 0 %; Platelet Count 238 10^3/cmm (157-399); Red Blood Count 4.93 10^6/uL (3.85-5.65); Red Cell Distribution Width 15.9 % (12.1-15.1); White Blood Count 6.06 10^3/uL (3.29-11.43)
[2024-05-20 10:03] LABS: Troponin(5th) Baseline 24 ng/L (0-15)
[2024-05-20] MEDS: aspirin 81 mg Chew Tablet 324 MG PO (10:03)
[2024-05-20 10:10] LABS: Alanine Aminotransferase 27 U/L (0-41); Albumin Level 4.7 g/dL (3.5-5.2); Alkaline Phosphatase 122 U/L (40-130); Anion Gap 18.4 (5-19); Aspartate Amino Transferase 17 U/L (0-40); Blood Urea Nitrogen 18 mg/dL (6-20); Calcium 9.5 mg/dL (8.5-10.5); Carbon Dioxide 22 mmol/L (22-29); Chloride 102 mmol/L (98-107); Creatinine Clr Calc Pharmacy 225.4879; Globulin 2.5 g/dL (1.3-4.6); Glomerular Filtration Rate 171.4 mL/min (90-130); Glucose 187 mg/dL (65-115); Osmolality Calculated 293 mOsm/kg (285-295); Potassium 4.4 mmol/L (3.5-5.1); Sodium 138 mmol/L (136-145); Total Bilirubin 0.2 mg/dL (0.15-1.2); Total Protein 7.2 g/dL (6.6-8.7)
[2024-05-20 12:03] LABS: Troponin 5 2HR 29.25 ng/L (0-15); Troponin 5 2HR Delta 5.25 ABS# (0-10)
--- NOTE | 2024-05-20 12:34 | ECG_ITS ---
[facility]: [facility]24-[facility]20 Pat Name: Jonathan Jett Department: Room: Gender: Male Rehab Spec: : 1965 Requested By: Misael Magana Order Number: [id number] Reading MD: GERARD MUNSON Measurements Intervals [place] Rate: 80 P: -4 [place]: 154 QRS: 60 QRSD: 101 T: 45 QT: 357 QTc: 413 Interpretive Statements SINUS RHYTHM Compared to ECG 05/20/2024 09:11:02 No significant changes Electronically Signed On 05-21-2024 21:08:54 SHIP SCALER by GERARD MUNSON [id number] [id number]
[2024-05-20] MEDS: nitroglycerin 1 gm/inch oint Pkt 0.5 INCH TOPICAL (12:37)
[2024-05-20] MEDS: enoxaparin 120 mg/0.8 mL Syringe 110 MG SUBCUT (14:04)
--- NOTE | 2024-05-20 14:15 | PC.NURSE ---
Contacted Dr. Mays about the pt being able to eat and Dr. Mays said he could even though Dr. Irizarry has him as NPO in the ER.
--- NOTE | 2024-05-20 15:20 | PM.CONSULT ---
Providers/Reason For Consult Consulting Physician/Specialty*: Sary Saini MD Reason for Consult*: Chest pain suspicious for unstable angina Uncontrolled hypertension Requesting Physician: Dr. Irizarry Attending Physician: Casey Tavares MD Primary Care Provider: Fortunato Hinojosa DO History of Present Illness History of Present Illness Jonathan Jett is a 59 year old male past medical history significant for coronary artery disease history of prior intervention to proximal and mid RCA and obtuse marginal, history of nonobstructive coronary artery disease in the LAD who has been noticing worsening of chest pain which has increased in duration and intensity over the past few weeks along with uncontrolled hypertension and systolic blood pressure can go up to the range of 200, according to the patient chest pain relieved with rest and nitroglycerin but day by day it is duration and intensity is worsening. Today when he had another episode of chest pain exactly in the similar fashion when he had his prior stents he decided to come to the ER. Initial cardiac markers are negative, EKG is not suggestive of ongoing ischemia however his presentation is highly suspicious for unstable angina. Medications/Allergies Home Medications ?Medication ?Instructions ?Recorded ?Confirmed ?Last Taken ?Type aspirin 81 mg tablet,delayed 81 mg PO DAILY 12/23/21 05/20/24 12/30/22 History release (Adult Aspirin Regimen) empagliflozin 25 mg tablet 25 mg PO DAILY 12/23/21 05/20/24 12/30/22 History (Jardiance) gemfibrozil 600 mg tablet 600 mg PO BID 12/23/21 05/20/24 12/30/22 History hydrocodone 7.5 mg-acetaminophen 15 ml PO Q6H PRN Pain 12/23/21 05/20/24 12/30/22 History 325 mg/15 mL oral solution levothyroxine 50 mcg capsule 50 mcg PO DAILY 12/23/21 05/20/24 12/30/22 History meloxicam 15 mg tablet 15 mg PO DAILY 12/23/21 05/20/24 12/30/22 History metformin 1,000 mg tablet 1,000 mg PO BID 12/23/21 05/20/24 12/30/22 History Held on 01/01/23. Instructions: Resume on 01/03/23. nitroglycerin 0.4 mg sublingual 0.4 mg sublingual Q5M PRN chest 01/13/23 05/20/24 Unknown Rx tablet pain #25 tabs atorvastatin 20 mg tablet 20 mg PO DAILY #90 tabs 06/15/23 05/20/24 Unknown Rx pantoprazole 20 mg tablet,delayed 20 mg PO DAILY #90 tabs 06/21/23 05/20/24 Unknown Rx release clopidogrel 75 mg tablet 75 mg PO DAILY 05/20/24 05/20/24 Unknown History multivit with minerals-folic 1 tab PO DAILY 05/20/24 05/20/24 Unknown History acid-lycopene 0.4 mg-600 mcg tablet niacinamide 500 mg tablet 500 mg PO BID 05/20/24 05/20/24 Unknown History Allergies Allergy/AdvReac Type Severity Reaction Status Date / Time niacin Allergy Mild ALGY-Redness Verified 12/20/23 15:45 of Skin Current Medications Generic Name Dose Route Start Last Admin Trade Name Freq PRN Reason Stop Dose Admin Enoxaparin Sodium 110 mg 05/20/24 13:45 05/20/24 14:04 Enoxaparin 120 Mg/0.8 Ml Syringe SUBCUT 110 mg Q12H CATRINA Administration PFSH Acute PFSH: Medical History (Updated 05/20/24 @ 15:26 by Sary Saini MD) Essential hypertension Hypothyroidism CAD (coronary artery disease) GERD (gastroesophageal reflux disease) Diabetes mellitus Surgical History History of back surgery Family History Other CAD (coronary artery disease) Cancer Diabetes Hypertension Social History Smoking and tobacco/nicotine status: current every day tobacco/nicotine user (chewing tobaccl) Vitals/I&O/Wt Last Vital Signs Temp 97.9 F 05/20/24 09:09 Pulse 82 05/20/24 12:37 Resp 16 05/20/24 14:10 BP 139/76 05/20/24 14:21 Pulse Ox 93 05/20/24 14:21 O2 Del Method Room Air 05/20/24 11:12 Weight last 48 hrs Weight 252 lb Physical Exam Const: OTHER: GENERAL: Patient is alert, awake and oriented x3. HEART: Regular S1 and S2. No murmur, rub or gallop. LUNGS: Clear to auscultate bilaterally. CENTRAL NERVOUS SYSTEM: Grossly nonfocal. EXTREMITIES: Lower extremities with out edema bilaterally. Data 05/20/24 09:41 05/20/24 09:41 A&P Assessment and plan (1) Unstable angina pectoris: (2) Essential hypertension: (3) Hyperlipidemia: (4) Diabetes mellitus: Plan Patient presentation is suspicious for unstable angina he has history of extensive coronary artery disease we will therefore proceed with left heart catheterization. I will start him on anticoagulation in the form of Lovenox 1 mg/kg he will get first dose now and will hold second dose for possible left heart cath in the morning. Continue aspirin and statin beta-gerri Plavix and home medications. Add isosorbide mononitrate on Nitropatch to the regimen. Further blood pressure control may can use hydralazine 10 mg IV q. for as needed for systolic blood pressure more than 160. Patient has been explained all risk-benefit and alternative for the procedure he would like to proceed with left heart cath/PCI if indicated. He will be n.p.o. overnight. PDMP PDMP Reviewed: Not Reviewed Consult Attestations Medical Necessity Statement: Patient require continuation hospitalization and expecting his stay to cross more than 2 midnights Coding Level of Care Code Acute Code for [facility] Fw Diagnoses Unstable angina pectoris I20.0 Essential hypertension I10 Hyperlipidemia E78.5 Diabetes mellitus E11.9
--- NOTE | 2024-05-20 15:39 | PC.NURSE ---
Patient transferred from ED to CSU via a wheelchair at 1535.
--- NOTE | 2024-05-20 15:53 | ECG_ITS ---
[facility] Test Date: 2024-05-20 Pat Name: Jonathan Jett Department: Room: 102 Gender: Male Enterprise Resource Planning Consultant: : 1965 Requested By: Misael Magana Order Number: [id number] Reading MD: GERARD MUNSON Measurements Intervals [place] Rate: 89 P: 19 [place]: 150 QRS: 66 QRSD: 101 T: 45 QT: 355 QTc: 434 Interpretive Statements SINUS RHYTHM Compared to ECG 05/20/2024 12:34:50 No significant changes Electronically Signed On 05-21-2024 21:08:44 JUNIOR ACCOUNT MANAGER by GERARD MUNSON [email or web address] [id number]
--- NOTE | 2024-05-20 16:00 | PM.HP ---
Providers/Chief Complaint Admitting Physician: Casey Tavares MD Primary Care Provider: Fortunato Hinojosa DO Chief Complaint: chest pain History of Present Illness Jonathan Jett is a 59 year old male with past medical for CAD, post PCI to mid and proximal RCA and OM, hypertension, hyperlipidemia, hypothyroidism, type 2 diabetes mellitus who presents to the ER today with concerns for worsening chest pain over the last few weeks. Mostly present on exertion and mildly at rest. Found to have uncontrolled hypertension in the ER. Chest pain relieved in the ER by nitroglycerin patch. Review of Systems General: Reports: 10 or more systems reviewed and unremarkable except in HPI and below Const: Denies: fever(s), chills, body aches, change in appetite, change in weight, malaise, night sweats, diaphoresis, change in sleep pattern, daytime sleepiness or snoring Eyes: Denies: change in vision, blurry vision, photophobia, eye discomfort or eye discharge ENMT: Denies: throat pain, enlarged tonsils, hoarseness, mouth pain, oral sores, dry mouth, tinnitus, nasal congestion or post nasal drip Card: Denies: chest pain, palpitations, irregular heart rhythm, edema, swelling of feet/ankles, lightheadedness, syncope, pre-syncope, dyspnea on exertion, orthopnea, leg pain with exertion or acrocyanosis Resp: Denies: dyspnea, productive cough, non-productive cough, wheezing, stridor, pain on inspiration, change in phlegm color, hemoptysis or chest congestion GI: Denies: abdominal pain, nausea, vomiting, hematemesis, coffee ground emesis, dysphagia, heartburn, diarrhea, constipation, bloating, GI cramping, change in bowel habits, pain on defecation, hematochezia or melena : Denies: flank pain, difficulty urinating, dysuria, urinary frequency, urinary urgency, urinary hesitancy, urinary dribbling, difficulty starting urination, change in urine stream, nocturia or hematuria Musc: Denies: neck pain, back pain, extremity pain, joint pain, joint swelling, joint redness, joint stiffness or limited range of motion Neuro: Denies: headache(s), numbness in extremities, weakness in extremities, sensory changes, lack of coordination, difficulty walking, frequent falls, dizziness, vertigo, confusion, Slurred speech present, difficulty communicating thoughts or seizure-like activity Psych: Denies: anxiety, depression, mood swings, panic attacks, hopelessness or irritability Endo: Denies: polyuria, polydipsia, tired all the time, cold intolerance, excessive sweating, flushing or heat intolerance Nacho/Lymph: Denies: easy bruising or easy bleeding All/Imm: Denies: tongue swelling, facial swelling or acute wheezing Medications/Allergies Home Medications ?Medication ?Instructions ?Recorded ?Confirmed ?Last Taken ?Type aspirin 81 mg tablet,delayed 81 mg PO DAILY 12/23/21 05/20/24 12/30/22 History release (Adult Aspirin Regimen) empagliflozin 25 mg tablet 25 mg PO DAILY 12/23/21 05/20/24 12/30/22 History (Jardiance) gemfibrozil 600 mg tablet 600 mg PO BID 12/23/21 05/20/24 12/30/22 History hydrocodone 7.5 mg-acetaminophen 15 ml PO Q6H PRN Pain 12/23/21 05/20/24 12/30/22 History 325 mg/15 mL oral solution levothyroxine 50 mcg capsule 50 mcg PO DAILY 12/23/21 05/20/24 12/30/22 History meloxicam 15 mg tablet 15 mg PO DAILY 12/23/21 05/20/24 12/30/22 History metformin 1,000 mg tablet 1,000 mg PO BID 12/23/21 05/20/24 12/30/22 History Held on 01/01/23. Instructions: Resume on 01/03/23. nitroglycerin 0.4 mg sublingual 0.4 mg sublingual Q5M PRN chest 01/13/23 05/20/24 Unknown Rx tablet pain #25 tabs atorvastatin 20 mg tablet 20 mg PO DAILY #90 tabs 06/15/23 05/20/24 Unknown Rx pantoprazole 20 mg tablet,delayed 20 mg PO DAILY #90 tabs 06/21/23 05/20/24 Unknown Rx release clopidogrel 75 mg tablet 75 mg PO DAILY 05/20/24 05/20/24 Unknown History multivit with minerals-folic 1 tab PO DAILY 05/20/24 05/20/24 Unknown History acid-lycopene 0.4 mg-600 mcg tablet niacinamide 500 mg tablet 500 mg PO BID 05/20/24 05/20/24 Unknown History Allergies Allergy/AdvReac Type Severity Reaction Status Date / Time niacin Allergy Mild ALGY-Redness Verified 12/20/23 15:45 of Skin PFSH Acute PFSH: Medical History (Updated 05/20/24 @ 15:26 by Sary Saini MD) Essential hypertension Hypothyroidism CAD (coronary artery disease) GERD (gastroesophageal reflux disease) Diabetes mellitus Surgical History History of back surgery Family History Other CAD (coronary artery disease) Cancer Diabetes Hypertension Social History Smoking and tobacco/nicotine status: current every day tobacco/nicotine user (chewing tobaccl) Vitals/I&O/Wt Last Vital Signs Temp 97.9 F 05/20/24 09:09 Pulse 99 05/20/24 15:53 Resp 18 05/20/24 15:53 BP 123/70 05/20/24 15:53 Pulse Ox 97 05/20/24 15:53 O2 Del Method Room Air 05/20/24 11:12 Weight last 48 hrs Weight 114.305 kg Physical Exam Narrative: General: No acute distress, AO x3 HEENT: PERRLA, pupils bilaterally equal and reactive Chest: Normal vesicular breath sounds, no added sounds, equal good air entry bilaterally CVS: S1-S2 regular, no murmurs, no tachycardia, no gallops, no rubs Abdomen: Soft, nontender, no organomegaly, bowel sounds present Neuro: No focal deficits, no facial deformity, AO x3, power 5/5 in all limbs Data 05/20/24 09:41 05/20/24 09:41 A&P Assessment and plan (1) Unstable angina pectoris: Concern for unstable angina. Check troponin cycle, echocardiogram A1c, lipid panel. Continue with aspirin, Plavix. Increase statin to high intensity 40 mg oral daily, continue with home dose of gemfibrozil. Start on metoprolol 25 mg twice daily. Continue with full dose Lovenox as per cardiology recommendations. Possible plan for cardiac angiogram in AM. N.p.o. after midnight. (2) CAD (coronary artery disease): (3) Essential hypertension: Goal blood pressure less than 140/90 mmHg. Currently has a Nitropatch on. Add Coreg 6.25 mg twice daily. Add Imdur 30 mg oral daily. Uptitrate as for goal blood pressures. (4) Diabetes mellitus: Check A1c. Sliding scale low-dose protocol. Hold off on OHA's. (5) Hyperlipidemia: Plan Full code Carb consistent cardiac diet, n.p.o. after midnight Protonix OPD prophylaxis Full dose Lovenox will be sufficient for DVT prophylaxis. PDMP PDMP Reviewed: Not Reviewed Attestations Medical Necessity Statement*: Admit under observation for management of unstable angina in a patient with history of CAD post PCI Diagnoses Unstable angina pectoris I20.0 CAD (coronary artery disease) I25.10 Essential hypertension I10 Diabetes mellitus E11.9 Hyperlipidemia E78.5
[2024-05-20 16:13] LABS: Troponin 5 6HR 34.35 ng/L (0-15); Troponin 5 6HR Delta 10.35 ng/L (0-12)
[2024-05-20 16:22] LABS: Estmated Average Glucose 154
[2024-05-20 16:45] LABS: Iron 14 ug/dL (59-158); Percent Saturation 3.3 % (20-50); Thyroid Stimulating Hormone 0.73 uIU/mL (0.27-4.20); Total Iron Binding Capacity 422 mcg/dl; Unsaturated Iron Binding 408 ug/dL (112-347); Vitamin B12 1031 pg/mL (232-1245)
[2024-05-20] MEDS: metoprolol tartrate 25 mg Tablet PO (17:01)
[2024-05-20] MEDS: pantoprazole 40 mg SDV IVP (17:02)
[2024-05-20 17:10] LABS: Procalcitonin 0.05 ng/mL (0-0.5)
[2024-05-20 17:55] LABS: Glucose Point of Care 134 mg/dL (70-110)
[2024-05-20] MEDS: isosorbide mononitrate ER 30 mg Tablet PO (18:19)
[2024-05-20] MEDS: gemfibrozil 600 mg Tablet PO (18:19)
[2024-05-20] MEDS: carvedilol 6.25 mg Tablet PO (18:19)
[2024-05-20 20:51] LABS: Glucose Point of Care 135 mg/dL (70-110)
[2024-05-21] VITALS (8 sets, daily range): BP systolic 105–152; BP diastolic 58–80; PULSE 76–100; RESP 12–20; TEMP 36.3–36.9; O2SAT 94–97
[2024-05-21] MEDS: enoxaparin 120 mg/0.8 mL Syringe 110 MG SUBCUT (02:28)
[2024-05-21 02:54] LABS: Basophils % 0.3 %; Eosinophils # 0.2 10^3/uL (0.0-0.8); Eosinophils % 3.8 %; Hematocrit 33.1 % (37-53); Lymphocytes # 1.6 10^3/uL (0.8-4.8); Lymphocytes % 27.4 %; Mean Corpuscular HGB Conc 27.8 g/dL (30-55); Mean Corpuscular Hemoglobin 19.8 pg (27-33); Mean Corpuscular Volume 71.2 fl (82-101); Mean Platelet Volume 9.8 fL (7.4-10.4); Monocytes # 0.5 10^3/uL (0.2-0.9); Monocytes % 9.2 %; Neutrophils # 3.45 10^3/uL (1.8-7.7); Neutrophils % 59.1 %; Nucleated Red Blood Cells % 0 %; Platelet Count 233 10^3/cmm (157-399); Red Blood Count 4.65 10^6/uL (3.85-5.65); Red Cell Distribution Width 15.9 % (12.1-15.1); White Blood Count 5.84 10^3/uL (3.29-11.43)
[2024-05-21 03:15] LABS: Alanine Aminotransferase 27 U/L (0-41); Albumin Level 4.4 g/dL (3.5-5.2); Alkaline Phosphatase 108 U/L (40-130); Anion Gap 16.1 (5-19); Aspartate Amino Transferase 18 U/L (0-40); Blood Urea Nitrogen 15 mg/dL (6-20); Calcium 9.4 mg/dL (8.5-10.5); Carbon Dioxide 23 mmol/L (22-29); Chloride 106 mmol/L (98-107); Creatinine Clr Calc Pharmacy 221.3047; Globulin 2.6 g/dL (1.3-4.6); Glomerular Filtration Rate 171.4 mL/min (90-130); Glucose 129 mg/dL (65-115); Osmolality Calculated 295 mOsm/kg (285-295); Phosphorus 3.3 mg/dL (2.5-4.5); Potassium 4.1 mmol/L (3.5-5.1); Sodium 141 mmol/L (136-145); Total Bilirubin 0.3 mg/dL (0.15-1.2)
[2024-05-21 03:25] LABS: Procalcitonin 0.05 ng/mL (0-0.5)
[2024-05-21 03:39] LABS: Folate Level > 20.0 ng/mL (4.5-32.2)
[2024-05-21 03:44] LABS: Chol HDL Ratio 5.19 mg/dL (1.0-5.00); Cholesterol 187 mg/dL (0-200); HDL Cholesterol 36 mg/dL (60-100); LDL Cholesterol Calculated 114 mg/dL (50-129); LDL HDL Ratio 3.17 RATIO (0.00-3.22); Triglycerides 185 mg/dL (0-150)
[2024-05-21 07:52] LABS: Glucose Point of Care 132 mg/dL (70-110)
--- NOTE | 2024-05-21 08:45 | W.PM.OPSUD ---
Surgery/Procedure H&P Update DATE OF PROCEDURE: May 21, 2024 DATE H&P PERFORMED: 05/20/24 H&P UPDATE INFORMATION: I have reviewed H&P completed within last 30 days, I have examined patient prior to procedure, No changes to prior documentation and Changes to prior documentation as noted here PREOP DIAGNOSIS: Unstable angina PATIENT REASSESSED PRIOR TO SEDATION, WITH NO CHANGE NOTED: Yes PHYSICAL EXAM: alert, oriented x 3, clear to auscultation bilaterally, regular rate & rhythm and operative site marked AIRWAY EVAL/ANESTHESIA PLAN: ASA II, Risks, benefits & alternatives of sedation and/or procedure discussed and Patient agrees to continue as planned
--- NOTE | 2024-05-21 10:13 | P.PCN_ITS ---
Procedure Note: Date of procedure: 05/21/24 Pre-procedure diagnosis: Unstable angina Post-procedure diagnosis: same Procedure: Coronary angiogram was performed through right radial. Patient was noted to have significant mid high-grade 95% stenosis, left main left circumflex had luminal irregularities, RCA was also noted to have distal 80-85% significant stenosis PCI to mid LAD pre and post dilated with noncompliant balloon, single drug- eluting stent was placed in the mid LAD with excellent angiographic result. PCI to distal RCA with single drug-eluting stent pre and postdilated with noncompliant balloon excellent angiographic result with SIS-3 flow noted in both vessels. Plan: Patient will be reloaded with 300 mg of Plavix, continue aspirin statin and home medications. TR band as per protocol No more Lovenox Continue IV fluid 100 mL/h for next 10 hours Echocardiogram to assess LV function Full note to be dictated Possible discharge tomorrow morning Coding Level of Care Code Acute Code for Tona Fwyeny
--- NOTE | 2024-05-21 10:30 | PC.NURSE ---
took over pt care post angiogram.
[2024-05-21] MEDS: gemfibrozil 600 mg Tablet PO ×2 (11:05→17:19)
[2024-05-21] MEDS: isosorbide mononitrate ER 30 mg Tablet PO (11:05)
[2024-05-21] MEDS: clopidogrel 75 mg Tablet PO (11:05)
[2024-05-21] MEDS: levothyroxine 50 mcg Tablet PO (11:05)
[2024-05-21] MEDS: carvedilol 6.25 mg Tablet PO ×2 (11:06→17:19)
[2024-05-21] MEDS: aspirin 81 mg EC Tablet PO (11:06)
[2024-05-21] MEDS: atorvastatin 40 mg Tablet 20 MG PO (11:06)
[2024-05-21] MEDS: sodium chloride 0.9% 1,000 ML 100 ML IV (11:09)
--- NOTE | 2024-05-21 12:10 | P.PN_ITS ---
Subjective 2 Subjective: Status post coronary angiogram today noted to have high-grade mid LAD 90 to 95% stenosis treated with single drug-eluting stent postdilated with noncompliant balloon. Patient was also noted to have distal RCA 80% stenosis treated with single drug-eluting stent postdilated with noncompliant balloon. Excellent angiographic result SIS-3 flow was noted. Vitals/I&O/Wt Last Vital Signs Temp 97.5 F L 05/21/24 10:11 Pulse 84 05/21/24 11:18 Resp 20 H 05/21/24 11:18 BP 132/66 05/21/24 11:18 Pulse Ox 96 05/21/24 11:18 O2 Del Method Room Air 05/21/24 10:11 O2 Flow Rate 2 05/21/24 04:44 05/20/24 05/21/24 05/21/24 22:59 06:59 14:59 Output Total 1450 / 1450 700 / 2150 650 / 650 Balance -1450 / -1450 -700 / -2150 -650 / -650 Weight last 48 hrs Weight 243 lb Weight 243 lb Weight 242 lb Weight 252 lb Physical Exam 2 Const: COMMON NORMALS: alert OTHER: GENERAL: Patient is alert, awake and oriented x3. HEART: Regular S1 and S2. No murmur, rub or gallop. LUNGS: Clear to auscultate bilaterally. CENTRAL NERVOUS SYSTEM: Grossly nonfocal. EXTREMITIES: Lower extremities with out edema bilaterally. Resp: COMMON NORMALS: clear to auscultation bilaterally AUSCULTATION: clear to auscultation bilaterally Neuro: SENSORIUM/ORIENTATION: Yes alert Data 05/21/24 02:40 05/21/24 02:40 A&P Assessment and plan (1) Unstable angina pectoris: (2) Essential hypertension: (3) Hyperlipidemia: (4) Diabetes mellitus: Plan Continue aspirin statin beta-gerri and Plavix. Radial band as per protocol IV fluid 100 mL/h for next 10 hours Possible discharge tomorrow PDMP PDMP Reviewed: Not Reviewed Attestations 2 Medical Necessity Statement*: Patient require continuation hospitalization post PCI Coding Level of Care Code Acute Code for Chg Fwd Diagnoses Unstable angina pectoris I20.0 Essential hypertension I10 Hyperlipidemia E78.5 Diabetes mellitus E11.9
[2024-05-21 12:50] LABS: Glucose Point of Care 204 mg/dL (70-110)
[2024-05-21] MEDS: insulin lispro 100 unit/1 mL SUBCUT ×2 (12:53→18:40)
--- NOTE | 2024-05-21 14:30 | P.PN_ITS ---
Subjective 2 Subjective: No acute events overnight. Denies any chest pain. Underwent PCI today. Seen with multiple family was at bedside. Vitals/I&O/Wt Last Vital Signs Temp 97.5 F L 05/21/24 10:11 Pulse 84 05/21/24 11:18 Resp 20 H 05/21/24 11:18 BP 132/66 05/21/24 11:18 Pulse Ox 96 05/21/24 11:18 O2 Del Method Room Air 05/21/24 10:11 O2 Flow Rate 2 05/21/24 04:44 05/20/24 05/21/24 05/21/24 22:59 06:59 14:59 Output Total 1450 / 1450 700 / 2150 650 / 650 Balance -1450 / -1450 -700 / -2150 -650 / -650 Weight last 48 hrs Weight 110.223 kg Weight 110.223 kg Weight 109.769 kg Weight 114.305 kg Physical Exam 2 Narrative: General: No acute distress, AO x3 HEENT: PERRLA, pupils bilaterally equal and reactive Chest: Normal vesicular breath sounds, no added sounds, equal good air entry bilaterally CVS: S1-S2 regular, no murmurs, no tachycardia, no gallops, no rubs Abdomen: Soft, nontender, no organomegaly, bowel sounds present Neuro: No focal deficits, no facial deformity, AO x3, power 5/5 in all limbs Data 05/21/24 02:40 05/21/24 02:40 A&P Assessment and plan (1) Unstable angina pectoris: Positive delta troponin. Underwent PCI today. Appreciate cardiology recommendations. Echocardiogram pending Appreciate A1c, lipid panel. Continue with aspirin, Plavix, Coreg. Continue with high-dose statin. Patient could not tolerate atorvastatin in the past but is agreeable to take high-dose simvastatin on discharge. Continue with gemfibrozil and niacin otherwise. (2) CAD (coronary artery disease): (3) Essential hypertension: Goal blood pressure less than 140/90 mmHg. Continue with Coreg and Imdur. Uptitrate for goal blood pressures. (4) Diabetes mellitus: Sliding scale low-dose protocol. Hold off on OHA's. (5) Hyperlipidemia: Plan Full code Carb consistent cardiac diet, Protonix OPD prophylaxis Full dose Lovenox will be sufficient for DVT prophylaxis. PDMP PDMP Reviewed: Not Reviewed Attestations 2 Medical Necessity Statement*: Requires further hospitalization for management of unstable angina post PCI in a patient with history of CAD, hypertension, hyperlipidemia Diagnoses Unstable angina pectoris I20.0 CAD (coronary artery disease) I25.10 Essential hypertension I10 Diabetes mellitus E11.9 Hyperlipidemia E78.5
--- NOTE | 2024-05-21 15:56 | USCV_ITS ---
Jonathan Jett Age: 59 Gender: M : 1965 Exam Date: 05/21/2024 13:18 Ordering Phys: Casey Tavares MD Technologist: Ascencion Allen Exam Location: [place] Indication: non stemi BP: 132 / 66 HR: 83 Rhythm: Sinus Technical Quality: Adequate MEASUREMENTS (Male / Female) Normal Values 2D ECHO LV Diastolic Diameter PLAX 4.7 cm 4.2 - 5.9 / 3.9 - 5.3 cm IVS Diastolic Thickness 1.3 cm 0.6 - 1.0 / 0.6 - 0.9 cm IVS Systolic Thickness 1.4 cm LVPW Diastolic Thickness 1.5 cm 0.6 - 1.0 / 0.6 - 0.9 cm LVPW Systolic Thickness 2.0 cm LV Ejection Fraction 2D Teich 60.0 % LV Ejection Fraction MOD 4C 61.3 % LV Ejection Fraction MOD 2C 65.2 % LV Ejection Fraction 2C AL 67.1 % LA Diameter 3.5 cm RA Systolic Volume 4C AL 36.0 ml RA Systolic Volume 4C MOD 35.9 ml LA Sys Volume AL 53.9 cm cubed LA Sys Volume Index AL 22.0 cm cubed/m squared Aorta at Sinotubular Diameter 2.5 cm M-MODE LA Ao Ratio MM 1.2 AV Cusp Separation MM 2.0 cm DOPPLER AV Peak Velocity 120.0 cm/s LVOT Peak Velocity 110.0 cm/s AV Area Cont Eq vti 2.8 cm squared AV Area Cont Eq pk 3.1 cm squared MV Peak Velocity 96.0 cm/s MV Area PHT 6.4 cm squared Mitral E to A Ratio 0.9 TV Peak Velocity 122.8 cm/s TR Peak Velocity 127.0 cm/s TR Peak Gradient 6.5 mmHg TR Mean Velocity 109.0 cm/s TR Mean Gradient 4.8 mmHg TR Velocity Time Integral 36.6 cm PV Peak Velocity 91.0 cm/s RV Ejection Time 0.3 s FINDINGS Left Ventricle Normal left ventricular size, systolic function and wall thickness, with no regional wall motion abnormalities. Left ventricular ejection fraction is estimated at 60 %. Grade I/IV diastolic dysfunction (abnormal relaxation filling pattern), normal to mildly elevated filling pressures. Right Ventricle The right ventricle is normal in size and function. Right Atrium The right atrium is normal in size. Left Atrium The left atrium is normal in size. Mitral Valve Structurally normal mitral valve without significant stenosis or prolapse. There is no mitral regurgitation. Aortic Valve Structurally normal aortic valve without significant sclerosis or stenosis. There is no aortic regurgitation. Tricuspid Valve Structurally normal tricuspid valve without significant stenosis or regurgitation. Pulmonary artery systolic pressure is normal. Pulmonic Valve Structurally normal pulmonic valve without significant stenosis. There is no pulmonic regurgitation. Pericardium Normal pericardium without effusion. Aorta Normal ascending aorta dimension. IVC Inferior vena cava not visualized. CONCLUSIONS Normal left ventricular size, systolic function and wall thickness, with no regional wall motion abnormalities. Left ventricular ejection fraction is estimated at 60 %. Grade I/IV diastolic dysfunction (abnormal relaxation filling pattern), normal to mildly elevated filling pressures. There is no pericardial effusion. No significant valve abnormalities. Sary Saini MD (Electronically Signed) Final Date: 21 May 2024 19:22 S
[2024-05-21 16:55] LABS: Glucose Point of Care 180 mg/dL (70-110)
[2024-05-21] MEDS: acetaminophen 325 mg Tablet 650 MG PO (17:19)
[2024-05-21] MEDS: pantoprazole 40 mg SDV IVP (17:20)
--- NOTE | 2024-05-21 19:49 | PC.NURSE ---
TR band off No complications post tr band removal. radial pulse palpable. activity restrictions discuss to pt post angiogram such as no lifting of more than 5 lbs on right wrist, no pushing,pulling or unnecessary bending on right forearm. call light provided to pt.
[2024-05-21] MEDS: atorvastatin 40 mg Tablet 80 MG PO (20:26)
[2024-05-21 20:57] LABS: Glucose Point of Care 131 mg/dL (70-110)
[2024-05-22 04:00] VITALS: BP 127/71; PULSE 78; TEMP 36.6
[2024-05-22 06:00] VITALS: PULSE 80
[2024-05-22 06:25] LABS: Glucose Point of Care 140 mg/dL (70-110)
--- NOTE | 2024-05-22 07:07 | PM.DCS ---
Discharge Providers Date of Admission: 05/20/24 12:40 Date of Discharge: May 22, 2024 Attending Provider at Admission: Casey Tavares MD Attending Provider at Discharge: Sary Ibarra MD Primary Care Provider: Fortunato Hinojosa DO Diagnoses at Discharge Discharge Diagnosis (1) Unstable angina pectoris: Status: Acute (2) CAD (coronary artery disease): Status: Acute (3) Essential hypertension: Status: Acute (4) Diabetes mellitus: Status: Acute (5) Hyperlipidemia: Status: Acute Reason for Visit Reason for Visit: chest pain Hospital Course Hospital Course 59-year-old male with previous history of coronary disease presented with chief complaint of unstable angina, patient was evaluated by cardiology, went for coronary angiogram 05/20 Status post coronary angiogram today noted to have high-grade mid LAD 90 to 95% stenosis treated with single drug-eluting stent postdilated with noncompliant balloon. Patient was also noted to have distal RCA 80% stenosis treated with single drug-eluting stent postdilated with noncompliant balloon. Excellent angiographic result SIS-3 flow was noted Grade 1 dialysis function on echo, preserved action fraction Patient chest pain free Hemodynamically stable Patient be discharged home with high intensity rosuvastatin, aspirin and Plavix 1 year regimen along Coreg Patient to hold metformin 48 hours after angiogram Meloxicam discontinued Follow-up with cardiology within 2 weeks as follow-up Physical Exam Narrative: General: No acute distress, AO x3 HEENT: PERRLA, pupils bilaterally equal and reactive Chest: Normal vesicular breath sounds, no added sounds, equal good air entry bilaterally CVS: S1-S2 regular, no murmurs, no tachycardia, no gallops, no rubs Abdomen: Soft, nontender, no organomegaly, bowel sounds present Neuro: No focal deficits, no facial deformity, AO x3, power 5/5 in all limbs Discharge Data Studies Completed and Pending Completed Studies During Hospitalization Category Date Time Status XR chest 1V portable [id number] Stat Exams 05/20/24 09:30 Completed CV. echo complete* [id number] Routine Ultrasound 05/21/24 15:56 Completed Pending at discharge Category Date Time Status [employer] request for service Routine Exams 05/21/24 07:51 Taken Complete Blood Count w/Auto AM LABS Lab 05/23/24 04:00 Ordered Comprehensive Metabolic Panel AM LABS Lab 05/23/24 04:00 Ordered Lactic Sepsis W/Reflex Stat Lab 05/20/24 15:56 Ordered Magnesium AM LABS Lab 05/23/24 04:00 Ordered Phosphorus AM LABS Lab 05/23/24 04:00 Ordered Radiology Impressions Chest X-Ray 05/20/24 09:30 IMPRESSION: No acute cardiopulmonary process. Laboratory Results WBC 5.84 10^3/uL (3.29-11.43) 05/21/24 02:40 RBC 4.65 10^6/uL (3.85-5.65) 05/21/24 02:40 Hgb 9.20 g/dL (11.27-16.99) L 05/21/24 02:40 Hct 33.1 % (37-53) L 05/21/24 02:40 MCV 71.2 fl (82-101) L 05/21/24 02:40 MCH 19.8 pg (27-33) L 05/21/24 02:40 MCHC 27.8 g/dL (30-55) L 05/21/24 02:40 RDW 15.9 % (12.1-15.1) H 05/21/24 02:40 Plt Count 233 10^3/cmm (157-399) 05/21/24 02:40 MPV 9.8 fL (7.4-10.4) 05/21/24 02:40 Neut % (Auto) 59.1 % 05/21/24 02:40 Lymph % (Auto) 27.4 % 05/21/24 02:40 [place] % (Auto) 9.2 % 05/21/24 02:40 Eos % (Auto) 3.8 % 05/21/24 02:40 Baso % (Auto) 0.3 % 05/21/24 02:40 Neut # (Auto) 3.45 10^3/uL (1.8-7.7) 05/21/24 02:40 Lymph # (Auto) 1.6 10^3/uL (0.8-4.8) 05/21/24 02:40 [place] # (Auto) 0.5 10^3/uL (0.2-0.9) 05/21/24 02:40 Eos # (Auto) 0.2 10^3/uL (0.0-0.8) 05/21/24 02:40 Baso # (Auto) 0.0 10^3/uL (0.0-0.1) 05/21/24 02:40 Nucleated RBC % (auto) 0 % 05/21/24 02:40 Nucleated RBCs # 0.0 /100WBC 05/21/24 02:40 Sodium 141 mmol/L (136-145) 05/21/24 02:40 Potassium 4.1 mmol/L (3.5-5.1) 05/21/24 02:40 Chloride 106 mmol/L (98-107) 05/21/24 02:40 Carbon Dioxide 23 mmol/L (22-29) 05/21/24 02:40 Anion Gap 16.1 (5-19) 05/21/24 02:40 BUN 15 mg/dL (6-20) 05/21/24 02:40 Creatinine 0.5 mg/dL (0.7-1.2) L 05/21/24 02:40 GFR Calculation 171.4 mL/min (90-130) H 05/21/24 02:40 Glucose 129 mg/dL (65-115) H 05/21/24 02:40 POC Glucose 140 mg/dL (70-110) H 05/22/24 06:18 Estimat Average Glucose 154 05/20/24 15:39 Hemoglobin A1c 7.0 % (4.0-6.0) H 05/20/24 15:39 Calculated Osmolality 295 mOsm/kg (285-295) 05/21/24 02:40 Calcium 9.4 mg/dL (8.5-10.5) 05/21/24 02:40 Phosphorus 3.3 mg/dL (2.5-4.5) 05/21/24 02:40 Magnesium 2.0 mg/dL (1.7-2.3) 05/21/24 02:40 Iron 14 ug/dL (59-158) L 05/20/24 15:39 TIBC 422 mcg/dl 05/20/24 15:39 % Saturation 3.3 % (20-50) L 05/20/24 15:39 Unsat Iron Binding 408 ug/dL (112-347) H 05/20/24 15:39 Total Bilirubin 0.3 mg/dL (0.15-1.2) 05/21/24 02:40 AST 18 U/L (0-40) 05/21/24 02:40 ALT 27 U/L (0-41) 05/21/24 02:40 Alkaline Phosphatase 108 U/L (40-130) 05/21/24 02:40 Troponin T Baseline 24 ng/L (0-15) H 05/20/24 09:41 Troponin T 120 Minute 29.25 ng/L (0-15) H 05/20/24 11:38 Delta Troponin T 5.25 ABS# (0-10) 05/20/24 11:38 Troponin T Hi Sens 6Hr 34.35 ng/L (0-15) H 05/20/24 15:39 Troponin T Hi Sens 6Hr Delta 10.35 ng/L (0-12) 05/20/24 15:39 Total Protein 7.0 g/dL (6.6-8.7) 05/21/24 02:40 Albumin 4.4 g/dL (3.5-5.2) 05/21/24 02:40 Globulin 2.6 g/dL (1.3-4.6) 05/21/24 02:40 Triglycerides 185 mg/dL (0-150) H 05/21/24 02:40 Cholesterol 187 mg/dL (0-200) 05/21/24 02:40 LDL Cholesterol, Calc 114 mg/dL (50-129) 05/21/24 02:40 HDL Cholesterol 36 mg/dL (60-100) L 05/21/24 02:40 LDL/HDL Ratio 3.17 RATIO (0.00-3.22) 05/21/24 02:40 Cholesterol/HDL Ratio 5.19 mg/dL (1.0-5.00) H 05/21/24 02:40 Vitamin B12 1031 pg/mL (232-1245) 05/20/24 15:39 Folate > 20.0 ng/mL (4.5-32.2) 05/21/24 02:40 Procalcitonin 0.05 ng/mL (0-0.5) 05/21/24 02:40 TSH 0.73 uIU/mL (0.27-4.20) 05/20/24 15:39 Vitals Last Vital Signs Temp 97.8 F 05/22/24 04:00 Pulse 80 05/22/24 06:00 Resp 20 H 05/21/24 16:00 BP 127/71 05/22/24 04:00 Pulse Ox 94 05/21/24 23:53 O2 Del Method Room Air 05/21/24 23:53 O2 Flow Rate 2 05/21/24 04:44 Discharge Plan Discharge Patient Disposition: Home Condition: Stable Prescriptions: New carvedilol 6.25 mg Tablet 6.25 mg PO BID Qty: 60 3RF rosuvastatin 20 mg tablet 20 mg PO DAILY Qty: 90 2RF Continued Jardiance 25 mg tablet 25 mg PO DAILY levothyroxine 50 mcg capsule 50 mcg PO DAILY hydrocodone-acetaminophen 7.5-325 mg/15 mL solution 15 ml PO Q6H PRN (Reason: Pain) nitroglycerin 0.4 mg tablet, sublingual 0.4 mg sublingual Q5M PRN (Reason: chest pain) Qty: 25 3RF Rx Instructions: do not exceed 3 doses per episode pantoprazole 20 mg tablet,delayed release (DR/EC) 20 mg PO DAILY Qty: 90 3RF Men's Daily Multivit-Mineral 0.4-600 mg-mcg Tablet 1 tab PO DAILY niacinamide [Niacin (niacinamide)] 500 mg Tablet 500 mg PO BID aspirin [Adult Aspirin Regimen] 81 mg tablet,delayed release (DR/EC) 81 mg PO DAILY Qty: 90 3RF Changed clopidogrel 75 mg tablet 75 mg PO DAILY Qty: 90 3RF Rx Instructions: Take 1 tablet by mouth once daily Held metformin 1,000 mg tablet 1,000 mg PO BID Hold Instructions: Resume on 05/23/24. Started 2 days after the angiogram Discontinued meloxicam 15 mg tablet 15 mg PO DAILY gemfibrozil 600 mg tablet 600 mg PO BID atorvastatin 20 mg tablet 20 mg PO DAILY Qty: 90 3RF Discharge Orders: Discharge Order (Routine); Ordered 05/22/24 Ordered By: Sary Ibarra Referrals: Sary Saini MD [Physician] - 2 weeks Fortunato Hinojosa DO [Primary Care Provider] - Discharge Diet: Cardiac Discharge Activity: Increase activity as tolerated Patient Instructions: Opioid Safety Discharge Attestations Time Spent in Discharge Care*: greater than 30 min Quality Metrics Clinical Quality Measures [ No reported AMI, CVA or VTE this stay] Coding Level of Care Code Acute Code for Chg Fwd Diagnoses Unstable angina pectoris I20.0 CAD (coronary artery disease) I25.10 Essential hypertension I10 Diabetes mellitus E11.9 Hyperlipidemia E78.5
[2024-05-22 07:17] VITALS: BP 133/72; PULSE 85; RESP 20; TEMP 36.9; O2SAT 96
[2024-05-22] MEDS: gemfibrozil 600 mg Tablet PO (08:13)
[2024-05-22] MEDS: clopidogrel 75 mg Tablet PO (08:13)
[2024-05-22] MEDS: carvedilol 6.25 mg Tablet PO (08:14)
[2024-05-22] MEDS: isosorbide mononitrate ER 30 mg Tablet PO (08:14)
[2024-05-22] MEDS: aspirin 81 mg EC Tablet PO (08:14)
[2024-05-22] MEDS: levothyroxine 50 mcg Tablet PO (08:14)
--- NOTE | 2024-05-22 09:42 | PC.CHAP ---
Pastoral Care Encounter/Spiritual Assessment Type of Contact [] Declined lead printer visit [] Patient/Family/Request visit [] Outpatient visit [] Follow-up visit [] Physician referral [] Code/Alert [x] Routine visit [] Staff referral [] Actively dying [] Patient sleeping [] Family support [] [] Out of room [] Palliative care [] [x] Receiving care in room [] Pre-surgical visit [] Trauma [] Long length of stay [] ICU visit [] Other: Relational/Emotional Strength [] Patient feels connected with others/family/visitors/staff [] Distress [] Loneliness/isolation [] Abandonment Spirituality of Patient [] Person of Sarita [] Attends Confucianist of their Sarita [] Believes in Prayer [] Reads Bible or Restorationist materials [] There are Spiritual issues to be addressed Fur Repair Inspector Interventions [] Prayer [] Active listening [] Non-anxious presence [] Spiritual/emotional support [] Crisis/trauma care [] Spiritual counseling [] Bereavement support [] Provided bereavement packet [] Provided Bible/devotional materials [] Provided toy/stuffed animal, coloring book to patient or family member [] Provided Communion [] Anointing/[place] [] Salvation [] Completed spiritual assessment [] Other: Impact on Illness or Injury [] Angry [] Fearful [] Anxious [] Often cries [] Exhaustion [] Unable to work [] Unable to attend presybeterian [] Unable to walk/stand [] Unable to read [] Unable to drive [] Unable to eat/drink [] Unable to sleep [] Unable to be with family [] Patient intubated [] Other: Summary Time spent with patient
[2024-05-22 11:43] LABS: Glucose Point of Care 165 mg/dL (70-110)
--- NOTE | 2024-05-22 13:37 | P.PN_ITS ---
<Statement entered by Sary Saini MD - 05/22/24 20:41> Patient was evaluated and cared for in conjunction with an advanced practice practitioner. I personally examined the patient and reviewed the chart and all pertinent data including imaging, telemetry, and laboratory results. I discussed the patient in detail with the advanced practice practitioner. Please see their note for complete H&P testing result and agreed upon plan of care for the patient. Denies any complaint no overnight event Status post drug-eluting stent to mid LAD and distal RCA GENERAL: Patient is alert, awake and oriented x3. HEART: Regular S1 and S2. No murmur, rub or gallop. LUNGS: Clear to auscultate bilaterally. CENTRAL NERVOUS SYSTEM: Grossly nonfocal. EXTREMITIES: Lower extremities with out edema bilaterally. Unstable angina Hypertension Hyperlipidemia Continue aspirin and statin beta-gerri clopidogrel Subjective 2 Subjective: Patient received a stent to the mid LAD and RCA yesterday. He is doing well with no complaints. He will be going home today. Cath site clean dry intact no evidence of hematoma Vitals/I&O/Wt Last Vital Signs Temp 98.4 F 05/22/24 07:17 Pulse 85 05/22/24 07:17 Resp 20 H 05/22/24 07:17 BP 133/72 05/22/24 07:17 Pulse Ox 96 05/22/24 07:17 O2 Del Method Room Air 05/22/24 07:17 O2 Flow Rate 2 05/21/24 04:44 05/21/24 05/22/24 05/22/24 22:59 06:59 14:59 Intake Total 1000 / 1000 240 / 240 Output Total 650 / 1300 1300 / 2600 Balance 350 / -300 -1300 / -1600 240 / 240 Weight last 48 hrs Weight 247 lb 1.6 oz Weight 247 lb 1.6 oz Weight 243 lb Weight 243 lb Weight 242 lb Physical Exam 2 Narrative: General: No apparent distress, healthy appearing, well nourished Lymphatic: no lymphedema noted Respiratory: Normal respiratory effort, clear to auscultation bilaterally throughout all lung ayala, no use of accessory muscles Cardio: No JVD, regular rate, regular rhythm, S1 S2 normal, no murmurs, peripheral pulses 2+ radial palpated bilaterally GI: Normal to inspection, nondistended Extremities: Full ROM, normal, normal capillary refill, no cyanosis or edema Neuro: Alert and oriented x4, no focal motor deficits Psych: Affect normal, denies suicidal ideation, mental status grossly normal Skin: Radial Cath site clean dry intact no evidence of hematoma Data 05/21/24 02:40 05/21/24 02:40 A&P Assessment and plan (1) Unstable angina pectoris: (2) Essential hypertension: (3) Hyperlipidemia: (4) Diabetes mellitus: Plan Continue aspirin statin beta-gerri and Plavix for at least one year. Hold Metformin 48 hours from contrast administrattion. F/U in the clinic in 7-10 days. PDMP PDMP Reviewed: Not Reviewed Attestations 2 Medical Necessity Statement*: May be d/c from cardiology standpoint Coding Level of Care Code Acute Code for Chg Fwd Diagnoses Unstable angina pectoris I20.0 Essential hypertension I10 Hyperlipidemia E78.5 Diabetes mellitus E11.9
== END 2024-05-22 11:45 | disposition home or self-care (01) ==
LOC: ER 09:42 → ER IP 13:09 → CSU 14:21
PROVIDERS: Internal Medicine Cardiovascular Disease; Admitting Provider Student in an Organized Health Care Education/Training Program; Emergency Provider Family Medicine; PCP Internal Medicine; Visit Provider Internal Medicine
DX: I25.110 Atherosclerotic heart disease of native coronary artery with unstable angina pectoris (principal); E03.9 Hypothyroidism, unspecified; K21.9 Gastro-esophageal reflux disease without esophagitis; I10 Essential (primary) hypertension; E11.9 Type 2 diabetes mellitus without complications; F17.220 Nicotine dependence, chewing tobacco, uncomplicated; Z88.8 Allergy status to other drugs, medicaments and biological substances; E78.5 Hyperlipidemia, unspecified; Z79.899 Other long term (current) drug therapy; Z79.82 Long term (current) use of aspirin; Z79.890 Hormone replacement therapy
CPT/HCPCS: 36415; 36416; 71045; 80053; 80061; 82607; 82746; 82962; 83036; 83540; 83550; 83735; 84100; 84145; 84443; 84484; 85025; 93005; 93306; 93454; 94664; 96372; 96374; 96375; 99152; 99153; 99285; C1725; C1769; C1874; C1887; C1894; C9600; C9601; G0378; J1200; J1644; J1650; J1815; J2250; J2470; J3010; J3490; J7030; Q9967

== ENCOUNTER 2024-05-29 10:48 | Observation (INO) | payer OTHER, SELFPAY ==
[2024-05-29] VITALS (10 sets, daily range): BP systolic 123–161; BP diastolic 72–82; PULSE 74–95; RESP 16–17; TEMP 36.3–37.2; O2SAT 94–100; BMI 29.5
--- NOTE | 2024-05-29 11:10 | ECG_ITS ---
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 Measurements Intervals [place] Rate: 83 P: 31 [place]: 159 QRS: 79 QRSD: 104 T: 20 QT: 358 QTc: 421 Interpretive Statements SINUS RHYTHM Compared to ECG 05/20/2024 15:53:05 No significant changes Electronically Signed On 05-29-2024 20:28:43 OPTOMETRIST/PRACTICE OWNER by Neda Ortega M.D. [id number]
--- NOTE | 2024-05-29 11:10 | XR_ITS ---
WS: [id number] Exam: XR chest 1V portable [id number] Date/Time of Exam: 05/29/2024 11:20 AM Reason For Exam: palpitations Comparison 05/20/2024. Lungs are clear and fully inflated. Normal cardiomediastinal silhouette. No pleural effusions. Bony structures are intact. XR/XR chest 1V portable [id number] IMPRESSION: 1. No acute cardiopulmonary finding.
--- NOTE | 2024-05-29 11:50 | ED_ITS ---
HPI - Syncope 2 General: Chief Complaint: Syncope Stated Complaint: had chest pain, passing out Time Seen by Provider: 05/29/24 11:44 History of Present Illness: 59-year-old man with a history of hypert ension, hypothyroidism, diabetes, GERD and coronary artery disease with stents placed about a week ago who presents emergency room after having an episode of chest pain this morning. He had central chest pain that was similar but somewhat different to when he had PA previously. This was a couple of hours ago. He took nitro. He was at work and thought it might have something to with cold air. It came back briefly on the right side but has since resolved and he is now chest pain-free. No cough. No shortness of breath. No fevers. No lower extremity swelling. No altered mental status. No focal motor deficits. Related Data Home Medications ?Medication ?Instructions ?Recorded ?Confirmed empagliflozin 25 mg tablet 25 mg PO DAILY 12/23/21 (Jardiance) hydrocodone 7.5 mg-acetaminophen 15 ml PO Q6H PRN Pain 12/23/21 05/29/24 325 mg/15 mL oral solution metformin 1,000 mg tablet 1,000 mg PO BID 12/23/21 Held on 05/22/24. Instructions: Resume on 05/23/24. Started 2 days after the angiogram multivit with minerals-folic 1 tab PO DAILY 05/20/24 0 05/29/24 acid-lycopene 0.4 mg-600 mcg tablet niacinamide 500 mg tablet 500 mg PO BID 05/20/2405/29 levothyroxine 50 mcg tablet 50 mcg PO DAILY 05/29/24 0 05/29/24 Previous Rx's ?Medication ?Instructions ?Recorded nitroglycerin 0.4 mg sublingual 0.4 mg sublingual Q5M PRN chest 01/13/23 tablet pain #25 tabs pantoprazole 20 mg tablet,delayed 20 mg PO DAILY #90 t abs 06/21/23 release aspirin 81 mg tablet,delayed 81 mg PO DAILY #90 tabs 0 05/22/24 release (Adult Aspirin Regimen) carvedilol 6.25 mg tablet 6.25 mg PO BID #60 tabs 05/13 clopidogrel 75 mg tablet 75 mg PO DAILY #90 tabs 05/13 rosuvastatin 20 mg tablet 20 mg PO DAILY #90 tabs 05/13 Allergies Allergy/AdvReac Type Severity Reaction Status Date / Time niacin Allergy Mild ALGY-Redness Verified 05/29/24 11:04 of Skin Review of Systems 2 Narrative: Constitutional symptoms: Negative except as documented in HPI. Skin symptoms: Negative except as documented in HPI. Eye symptoms: Negative except as documented in HPI. ENMT symptoms: Negative except as documented in HPI. Respiratory symptoms: Negative except as documented in HPI. Cardiovascular symptoms: Negative except as documented in HPI. Gastrointestinal symptoms: Negative except as documented in HPI. Genitourinary symptoms: Negative except as documented in HPI. Musculoskeletal symptoms: Negative except as documented in HPI. Neurologic symptoms: Negative except as documented in HPI. Psychiatric symptoms: Negative except as documented in HPI. Endocrine symptoms: Negative except as documented in HPI. PFSH ED 2 PFSH: Medical History (Updated 05/29/24 @ 14:42 by Malka Jeffries MD) Unstable angina pectoris Hyperlipidemia Essential hypertension Hypothyroidism CAD (coronary artery disease) GERD (gastroesophageal reflux disease) Diabetes mellitus Surgical History History of back surgery Family History Other CAD (coronary artery disease) Cancer Diabetes Hypertension Social History Smoking and tobacco/nicotine status: current every day tobacco/nicotine user (chewing tobaccl) Physical Exam 2 Narrative: EXAM NARRATIVE: General: Alert, no acute distress. Skin: Warm, dry. Head: Normocephalic, atraumatic. Neck: Supple, trachea midline. Eye: Extraocular movements are intact. Ears, nose, mouth and throat: mucosa moist. Cardiovascular: Regular, Normal peripheral perfusion. Respiratory: Lungs are clear to auscultation, respirations are non-labored, breath sounds are equal, Symmetrical chest wall expansion. Gastrointestinal: Soft, Nontender, Non distended Musculoskeletal: Normal ROM, no deformity. Neurological: Alert and oriented, No focal neurological deficit observed. Psychiatric: Cooperative, appropriate mood & affect. Course 2 Vital Signs: Vital signs: Vital Signs Temperature 97.4 F L 05/29/24 10:54 Pulse Rate 74 05/29/24 14:00 Blood Pressure 129/78 05/29/24 14:00 Pulse Oximetry 100 05/29/24 14:00 Oxygen Delivery Me thod Room Air 05/29/24 14:00 MDM - Syncope Medical Decision Making Differential diagnosis for patient with chest pain includes but is not limited to and based on the above HPI, review of systems and physical exam: Pneumonia. unstable angina. angina. Acute coronary syndrome / PA. Pulmonary embolism. Costochondritis / musculoskeletal. Pleurisy. Pericarditis. Esophageal spasm. Pancreatis. Cholecystitis. Orders placed to evaluate differential diagnosis based on the above differential, HPI and physical exam EKG: Time 1058. Rate 83. Normal sinus rhythm, No ST-T changes, no ectopy, normal NC & QRS intervals, This was reviewed and interpreted by myself the ER physician at 1107 Repeat EKG: Time 1245. Rate 83. Normal sinus rhythm, No ST-T changes, no ectopy, normal NC & QRS intervals, This was reviewed and interpreted by myself the ER physician at 1250. No significant changes from previous EKG. Chest x-ray: No acute process. No infiltrate. No pneumothorax. This was reviewed and interpreted by myself the emergency room physician. I also reviewed the radiology report. Lab Review: Laboratory results were reviewed and interpreted by myself the emergency room physician. No leukocytosis. No anemia. No renal failure. Initial troponin was over 40. Repeat was almost 70 with a delta of 27. Flu COVID and RSV were negative I reviewed the patient's medical record. Reexamination: Patient remained stable. No increased work of breathing. No altered mental status. No focal motor deficits. Patient has remained chest pain-free while in the emergency room. I discussed admission and he expresses understanding. Consultation: I spoke with Dr. Saini who is on-call for the bilingual administrative assistant service and is familiar with the patient as he Them last week. He will see the patient in consult. No additional recommendations at this time. Consultation: I spoke with Dr. Damon who is on-call for the hospitalist service who agrees to admission to observation. Assessment and plan: Non-ST elevation myocardial infarction Chest pain Coronary artery disease -I discussed the patient with the hospitalist on-call who is admitting the patient. - Discussed findings and plan with patient. Answered any questions. - All laboratory values were reviewed and interpreted personally by myself, the ER physician - All imaging was reviewed and interpreted personally by myself, the ER physician. - Evaluation and treatment of this problem were appropriate in the emergency setting Lab Data 05/29/24 11:31 05/29/24 11:31 Radiology Impressions Chest X-Ray 05/29/24 11:10 IMPRESSION: 1. No acute cardiopulmonary finding. Laboratory Results WBC 7.95 10^3/uL (3.29-11.43) 05/29/24 11: RBC 5.32 10^6/uL (3.85-5.65) 05/29/24 11:31 Hgb 10.60 g/dL (11.27-16.99) L 05/29/24 11:31 Hct 38.0 % (37-53) 05/29/24 11:31 MCV 71.4 fl (82-101) L 05/29/24 11:31 MCH 19.9 pg (27-33) L 05/29/24 11:31 MCHC 27.9 g/dL (30-55) L 05/29/24 11:31 RDW 15.6 % (12.1-15.1) H 05/29/24 11:31 Plt Count 287 10^3/cmm (157-399) 05/29/24 11:31 MPV 10.1 fL (7.4-10.4) 05/29/24 11:31 Neut % (Auto) 81.3 % 05/29/24 11:31 Lymph % (Auto) 10.4 % 05/29/24 11:31 [place] % (Auto) 6.8 % 05/29/24 11:31 Eos % (Auto) 0.6 % 05/29/24 11:31 Baso % (Auto) 0.4 % 05/29/24 11:31 Neut # (Auto) 6.46 10^3/uL (1.8-7.7) 05/29/24 11:31 Lymph # (Auto) 0.8 10^3/uL (0.8-4.8) 05/29/24 11:31 [place] # (Auto) 0.5 10^3/uL (0.2-0.9) 05/29/24 11:31 Eos # (Auto) 0.1 10^3/uL (0.0-0.8) 05/29/24 11:31 Baso # (Auto) 0.0 10^3/uL (0.0-0.1) 05/29/24 11:31 Nucleated RBC % (auto) 0 % 05/29/24 11:31 Nucleated RBCs # 0.0 /100WBC 05/29/24 11:31 Sodium 138 mmol/L (136-145) 05/29/24 11:31 Potassium 4.5 mmol/L (3.5-5.1) 05/29/24 11:31 Chloride 98 mmol/L (98-107) 05/29/24 11:31 Carbon Dioxide 24 mmol/L (22-29) 05/29/24 11:31 Anion Gap 20.5 (5-19) H 05/29/24 11:31 BUN 21 mg/dL (6-20) H 05/29/24 11:31 Creatinine 0.6 mg/dL (0.7-1.2) L 05/29/24 11:31 GFR Calculation 138.9 mL/min (90-130) H 05/29/24 11:31 Glucose 118 mg/dL (65-115) H 05/29/24 11:31 Calculated Osmolality 290 mOsm/kg (285-295) 05/29/24 11:31 Calcium 10.3 mg/dL (8.5-10.5) 05/29/24 11:31 Total Bilirubin 0.3 mg/dL (0.15-1.2) 05/29/24 11:31 AST 16 U/L (0-40) 05/29/24 11:31 ALT 19 U/L (0-41) 05/29/24 11:31 Alkaline Phosphatase 145 U/L (40-130) H 05/29/24 11:31 Troponin T Baseline 42 ng/L (0-15) H 05/29/24 11:31 Troponin T 120 Minute 68.70 ng/L (0-15) H 05/29/24 13:57 Delta Troponin T 26.70 ABS# (0-10) H* 05/29/24 13:57 NT-Pro-B Natriuret Pep < 36 pg/mL (0-125) 05/29/24 11:31 Total Protein 7.7 g/dL (6.6-8.7) 05/29/24 11:31 Albumin 5.0 g/dL (3.5-5.2) 05/29/24 11:31 Globulin 2.7 g/dL (1.3-4.6) 05/29/24 11:31 Influenza A (PCR) Negative (Negative) 05/29/24 11:53 Influenza Type B (PCR) Negative (Negative) 05/29/24 11:53 RSV (PCR) Negative (Negative) 05/29/24 11:53 SARS-CoV-2 (PCR) Negative (Negative) 05/29/24 11:53 All radiology interpretation(s) finalized by discharge Discharge Plan Discharge Patient Disposition: Placed in Observation Clinical Impression: Non-ST elevation (NSTEMI) myocardial infarction, Chest pain, Coronary artery disease Coding Level of Care Code ED Securities Trader for Tona Molina
[2024-05-29 11:53] LABS: Basophils % 0.4 %; Eosinophils # 0.1 10^3/uL (0.0-0.8); Eosinophils % 0.6 %; Lymphocytes # 0.8 10^3/uL (0.8-4.8); Lymphocytes % 10.4 %; Mean Corpuscular HGB Conc 27.9 g/dL (30-55); Mean Corpuscular Hemoglobin 19.9 pg (27-33); Mean Corpuscular Volume 71.4 fl (82-101); Mean Platelet Volume 10.1 fL (7.4-10.4); Monocytes # 0.5 10^3/uL (0.2-0.9); Monocytes % 6.8 %; Neutrophils # 6.46 10^3/uL (1.8-7.7); Neutrophils % 81.3 %; Nucleated Red Blood Cells % 0 %; Platelet Count 287 10^3/cmm (157-399); Red Blood Count 5.32 10^6/uL (3.85-5.65); Red Cell Distribution Width 15.6 % (12.1-15.1); White Blood Count 7.95 10^3/uL (3.29-11.43)
[2024-05-29 12:14] LABS: Troponin(5th) Baseline 42 ng/L (0-15)
[2024-05-29 12:21] LABS: Alanine Aminotransferase 19 U/L (0-41); Alkaline Phosphatase 145 U/L (40-130); Anion Gap 20.5 (5-19); Aspartate Amino Transferase 16 U/L (0-40); Blood Urea Nitrogen 21 mg/dL (6-20); Calcium 10.3 mg/dL (8.5-10.5); Carbon Dioxide 24 mmol/L (22-29); Chloride 98 mmol/L (98-107); Creatinine Clr Calc Pharmacy 184.7695; Globulin 2.7 g/dL (1.3-4.6); Glomerular Filtration Rate 138.9 mL/min (90-130); Glucose 118 mg/dL (65-115); NT Pro B Type Natriuretic Pept < 36 pg/mL (0-125); Osmolality Calculated 290 mOsm/kg (285-295); Potassium 4.5 mmol/L (3.5-5.1); Sodium 138 mmol/L (136-145); Total Bilirubin 0.3 mg/dL (0.15-1.2); Total Protein 7.7 g/dL (6.6-8.7)
[2024-05-29 12:45] LABS: Influenza A NEGATIVE (Negative); Influenza B NEGATIVE (Negative); Respiratory Syncytial Virus Ce NEGATIVE (Negative); SARS-CoV-2 PCR NEGATIVE (Negative)
--- NOTE | 2024-05-29 13:10 | ECG_ITS ---
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
--- NOTE | 2024-05-29 14:44 | PM.HP ---
Providers/Chief Complaint Admitting Physician: Marisol Primary Care Provider: Fortunato Hinojosa DO Chief Complaint: had chest pain, passing out History of Present Illness 59-year-old male with a past medical history of coronary artery disease status post recent coronary angiogram on 05/20/2024 with placement of drug-eluting stents to mid LAD 90-95% stenosis and distal RCA 80% stenosis, hypertension, hyperlipidemia, and diabetes mellitus presents with chest pain on his first day back to work. 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 He reports feeling sick and nearly passing out around 06:30, with an episode of emesis. He then developed chest pain around 08:00, described as diffuse pain across the chest associated with pain on breathing. He took a nitroglycerin with initial relief, but pain returned on the right side. Pain persisted while driving home but resolved after about 30 minutes of rest. He denies any lightheadedness, dizziness, radiation of pain, fevers, chills, abdominal pain, diarrhea or constipation.Of note, the patient was recently started on Ozempic for diabetes management on 05/23/2024, with the first dose taken on 05/24/2024. No other new or different foods were consumed. Patient was chest pain free at the time of my eval. Review of Systems General: Reports: 10 or more systems reviewed and unremarkable except in HPI and below Medications/Allergies Home Medications ?Medication ?Instructions ?Recorded ?Confirmed ?Last Taken ?Type empagliflozin 25 mg tablet 25 mg PO DAILY 12/23/21 05/29/24 12/30/22 History (Jardiance) hydrocodone 7.5 mg-acetaminophen 15 ml PO Q6H PRN Pain 12/23/21 05/29/24 12/30/22 History 325 mg/15 mL oral solution metformin 1,000 mg tablet 1,000 mg PO BID 12/23/21 05/29/24 12/30/22 History Held on 05/22/24. Instructions: Resume on 05/23/24. Started 2 days after the angiogram nitroglycerin 0.4 mg sublingual 0.4 mg sublingual Q5M PRN chest 01/13/23 05/29/24 Unknown Rx tablet pain #25 tabs pantoprazole 20 mg tablet,delayed 20 mg PO DAILY #90 tabs 06/21/23 05/29/24 Unknown Rx release multivit with minerals-folic 1 tab PO DAILY 05/20/24 05/29/24 Unknown History acid-lycopene 0.4 mg-600 mcg tablet niacinamide 500 mg tablet 500 mg PO BID 05/20/24 05/29/24 Unknown History aspirin 81 mg tablet,delayed 81 mg PO DAILY #90 tabs 05/22/24 05/29/24 12/30/22 Rx release (Adult Aspirin Regimen) carvedilol 6.25 mg tablet 6.25 mg PO BID #60 tabs 05/22/24 05/29/24 Unknown Rx clopidogrel 75 mg tablet 75 mg PO DAILY #90 tabs 05/22/24 05/29/24 Unknown Rx rosuvastatin 20 mg tablet 20 mg PO DAILY #90 tabs 05/22/24 05/29/24 Unknown Rx levothyroxine 50 mcg tablet 50 mcg PO DAILY 05/29/24 05/29/24 Unknown History Allergies Allergy/AdvReac Type Severity Reaction Status Date / Time niacin Allergy Mild ALGY-Redness Verified 05/29/24 11:04 of Skin PFSH Acute PFSH: Medical History (Updated 05/29/24 @ 14:42 by Malka Jeffries MD) Unstable angina pectoris Hyperlipidemia Essential hypertension Hypothyroidism CAD (coronary artery disease) GERD (gastroesophageal reflux disease) Diabetes mellitus Surgical History History of back surgery Family History Other CAD (coronary artery disease) Cancer Diabetes Hypertension Social History Smoking and tobacco/nicotine status: current every day tobacco/nicotine user (chewing tobaccl) Vitals/I&O/Wt Last Vital Signs Temp 97.4 F L 05/29/24 10:54 Pulse 74 05/29/24 14:00 BP 129/78 05/29/24 14:00 Pulse Ox 100 05/29/24 14:00 O2 Del Method Room Air 05/29/24 14:00 Weight last 48 hrs Weight 110.223 kg Physical Exam Narrative: General: Well-appearing male, in no acute distress HEENT: Grossly unremarkable Neck: Supple, no lymphadenopathy, no JVD, no carotid bruits Cardiovascular: Regular rate and rhythm, normal S1 and S2, no murmurs, rubs or gallops Respiratory: Clear to auscultation bilaterally, no wheezes, rales or rhonchi Abdomen: Soft, non-tender, non-distended, no organomegaly, normoactive bowel sounds Extremities: No edema, no cyanosis, 2+ pulses throughout Neurologic: Alert and oriented x3, cranial nerves II-XII grossly intact, normal strength and sensation in all extremities, normal gait Skin: Warm, dry, intact, no rashes or lesions Psychiatric: Normal Data 05/29/24 11:31 05/29/24 11:31 A&P Assessment and plan (1) Non-ST elevation (NSTEMI) myocardial infarction: (2) Coronary artery disease: (3) Dyspnea on exertion: Plan Chest Pain - 59-year-old male with recent coronary stent placement presenting with chest pain and an episode of emesis on first day back to work. Differential diagnosis includes: 1. Anginal chest pain in the setting of recent coronary intervention, Less likely given atypical character of pain 2. Gastroesophageal reflux/acid reflux triggered by recent initiation of Ozempic, which has known side effects of nausea and vomiting. Acid reflux? Plan: 1. Admit for observation and serial cardiac enzymes to rule out acute coronary syndrome. Telemetry monitoring. 2. Consult Cardiology (Dr. Saini) for recommendations given recent intervention. 3. Supportive care with anti-emetics as needed. Hold metformin, continue asa,plavix. 4. If workup is reassuring, consider discharge tomorrow with close follow up. Diabetes Mellitus Type 2 - Recently started on Ozempic weekly injections as of 05/23/2024. Noted to have nausea and vomiting, a known side effect. Plan: 1. Hold metformin while admitted, manage blood sugars with sliding scale insulin. 2. Counseled on common side effects of Ozempic including nausea, vomiting, and abdominal discomfort. To address with primary care. PDMP PDMP Reviewed: Not Reviewed Attestations Medical Necessity Statement*: Will require less than 2 midnight stay in hospital. Coding Level of Care Code Acute Code for [facility] Fwd Diagnoses Non-ST elevation (NSTEMI) myocardial infarction I21.4 Coronary artery disease I25.10 Dyspnea on exertion R06.09
[2024-05-29] MEDS: enoxaparin 40 mg/0.4 mL Syringe SUBCUT (15:29)
--- NOTE | 2024-05-29 16:05 | PC.NURSE ---
Patient transferred from ED to CSU via a wheelchair at 1600.
--- NOTE | 2024-05-29 16:08 | P.CONIM_ITS ---
<Statement entered by Sary Saini MD - 05/29/24 19:13> Patient was evaluated and cared for in conjunction with an advanced practice practitioner. I personally examined the patient and reviewed the chart and all pertinent data including imaging, telemetry, and laboratory results. I discussed the patient in detail with the advanced practice practitioner. Please see their note for complete H&P testing result and agreed upon plan of care for the patient. 59-year-old male past medical history significant for recent PCI to LAD and RCA discharged from the hospital a week ago, started Ozempic this Wednesday and increased carvedilol by the primary care physician because of high blood pressure, today at the work felt nauseated dizzy and threw up. After that he felt generalized chest pain across the chest he said it was different from what he had when his stents were placed. He decided to come to the ER. Initial troponin was 26 which is fifth generation. Currently feeling better denies any chest pain PND orthopnea. GENERAL: Patient is alert, awake and oriented x3. HEART: Regular S1 and S2. No murmur, rub or gallop. LUNGS: Clear to auscultate bilaterally. CENTRAL NERVOUS SYSTEM: Grossly nonfocal. EXTREMITIES: Lower extremities with out edema bilaterally. Assessment and plan Chest pain: Atypical most likely musculoskeletal cardiac markers mildly elevated which is nonspecific and may be secondary to hypertension Nausea vomiting: Could be secondary to Ozempic Hypertension: Will optimize medication to control blood pressure better. Observe overnight if no more bump in troponin and patient chest pain-free may can be discharged after 24 hours Providers/Reason For Consult 2 Consulting Physician/Specialty*: Sary Saini MD Reason for Consult*: Chest pain, elevated troponin Requesting Physician: Dr. Jeffries Attending Physician: Sintia Damon Primary Care Provider: Fortunato Hinojosa DO History of Present Illness History of Present Illness Jonathan Jett is a 59 year old male who has a history of coronary artery disease, hypertension, type 2 diabetes who came into the ER today due to an incident of feeling like he was going to pass out and chest discomfort. He has a history of recent angiogram with stenting on 05/21/[address] Saini. He was found to have a significant high-grade 95% stenosis of the LAD and an 80 to 85% significant stenosis RCA. He underwent PCI with drug-eluting stents in both lesions. He had a normal post cath course. He states he has been doing fine up until today. He states he was outside in the cold weather and developed chest discomfort across his whole chest mainly with taking deep breaths. He states it was not really like what he is experienced in the past when he has had chest pains. He states he took some nitro but it did not really help. He states it went away after 3 to 5 minutes. He decided to come into the hospital to get it checked out. Chest x-ray with no acute abnormalities. No signs or symptoms of acute CHF. Denies orthopnea. Denies any chest pain at this time. Troponin was slightly elevated at 42?68.7 delta positive. EKG showed no acute ST or T wave abnormalities. Review of Systems 2 Narrative: Consitutional: denies fever, chills, body aches, or changes in appetite, denies abnormal weight loss Eyes: Denies changes in vision Card: Denies chest pain, palpitations, irregular heart rhythm, edema, syncope, shortness of breath, orthopnea, leg pain with exertion Resp: Denies shortness of breath, denies hemoptysis, denies cough GI: denies abdominal pain, denies nausea or voimting, denies blood in stool : denies blood in urine, denies dysuria Musc: Denies extremity pain, denies limited range of motion or recent injury Skin: Denies rash, lesions, or wounds, denies changes to skin color Neuro: Denies nubmness in extremities, h/a, s/s of stroke Nacho: Denies easy bruiding/bleeding All: Denies s/s of allergies Medications/Allergies Home Medications ?Medication ?Instructions ?Recorded ?Confirmed ?Last Taken ?Type empagliflozin 25 mg tablet 25 mg PO DAILY 12/23/2112/30/22 History (Jardiance) hydrocodone 7.5 mg-acetaminophen 15 ml PO Q6H PRN Pain 12/23/21 05/29/24 12/30/22 History 325 mg/15 mL oral solution metformin 1,000 mg tablet 1,000 mg PO BID 12/23/2112/30/22 History Held on 05/22/24. Instructions: Resume on 05/23/24. Started 2 days after the angiogram nitroglycerin 0.4 mg sublingual 0.4 mg sublingual Q5M PRN chest 01/13/23 05/29/24 Unknown Rx tablet pain #25 tabs pantoprazole 20 mg tablet,delayed 20 mg PO DAILY #90 t abs 06/21/23 05/29/24 Unknown Rx release multivit with minerals-folic 1 tab PO DAILY 05/20/24 0 05/29/24 Unknown History acid-lycopene 0.4 mg-600 mcg tablet niacinamide 500 mg tablet 500 mg PO BID 05/20/2405/29 Unknown History aspirin 81 mg tablet,delayed 81 mg PO DAILY #90 tabs 0 05/22/24 05/29/24 12/30/22 Rx release (Adult Aspirin Regimen) carvedilol 6.25 mg tablet 6.25 mg PO BID #60 tabs 05/1305/29/24 Unknown Rx clopidogrel 75 mg tablet 75 mg PO DAILY #90 tabs 05/1305/29/24 Unknown Rx rosuvastatin 20 mg tablet 20 mg PO DAILY #90 tabs 05/1305/29/24 Unknown Rx levothyroxine 50 mcg tablet 50 mcg PO DAILY 05/29/24 0 05/29/24 Unknown History Allergies Allergy/AdvReac Type Severity Reaction Status Date / Time niacin Allergy Mild ALGY-Redness Verified 05/29/24 11:04 of Skin Current Medications Generic Name Dose Route Start Last Admin Trade Name Freq PRN Reason Stop Dose Admin Enoxaparin Sodium 40 mg 05/29/24 14:45 05/29/24 15:29 Enoxaparin 40 Mg/0.4 Ml Syringe SUBCUT 40 mg Q24H CATRINA Administration PFSH Acute 2 PFSH: Medical History (Updated 05/29/24 @ 14:42 by Malka Jeffries MD) Unstable angina pectoris Hyperlipidemia Essential hypertension Hypothyroidism CAD (coronary artery disease) GERD (gastroesophageal reflux disease) Diabetes mellitus Surgical History History of back surgery Family History Other CAD (coronary artery disease) Cancer Diabetes Hypertension Social History Smoking and tobacco/nicotine status: current every day tobacco/nicotine user (chewing tobaccl) Vitals/I&O/Wt Last Vital Signs Temp 97.4 F L 05/29/24 10:54 Pulse 87 05/29/24 15:30 BP 161/82 05/29/24 15:30 Pulse Ox 98 05/29/24 15:30 O2 Del Method Room Air 05/29/24 15:30 Weight last 48 hrs Weight 243 lb Physical Exam 2 Narrative: General: No apparent distress, healthy appearing, well nourished HENMT: normoceophalic Muskuloskeletal: Full ROM Lymphatic: no lymphedema noted Respiratory: Normal respiratory effort, clear to auscultation bilaterally throughout all lung ayala, no use of accessory muscles Cardio: No JVD, regular rate, regular rhythm, S1 S2 normal, no murmurs, peripheral pulses 2+ radial palpated bilaterally GI: Normal to inspection, nondistended Extremities: Full ROM, normal, normal capillary refill, no cyanosis or edema Neuro: Alert and oriented x4, no focal motor deficits Psych: Affect normal, denies suicidal ideation, mental status grossly normal Skin: No rashes or lesions noted, no wounds Data 05/29/24 11:31 05/29/24 11:31 A&P Assessment and plan (1) Chest pain: (2) Non-ST elevation (NSTEMI) myocardial infarction: (3) Coronary artery disease: Plan The plan for this 59-year-old gentleman is to continue to observe. He is getting admitted to cardiac stepdown unit. At this time his symptoms are atypical. Will continue to watch and trend troponin. Continue to monitor for EKG changes or chest pain. At this time patient is stable. His symptoms are consistent with a possible respiratory cause due to the chest pain occurred or worsened with deep inspiration. Will continue to monitor to r/o cardiac causes. BP has been slightly elevated at home. May consider increasing carvedilol to 12.5 BID if BP does not come down after restarting home medications. Thank you for allowing us to care for this very pleasant gentleman. PDMP PDMP Reviewed: Not Reviewed Consult Attestations 2 Medical Necessity Statement: Deferred to primary. Coding Level of Care Code Acute Code for [facility] Fwd Diagnoses Chest pain R07.9 Non-ST elevation (NSTEMI) myocardial infarction I21.4 Coronary artery disease I25.10
[2024-05-29 16:24] LABS: Glucose Point of Care 102 mg/dL (70-110)
--- NOTE | 2024-05-29 17:10 | ECG_ITS ---
[facility] 2024-[facility]29 Pat Name: Jonathan Jett Department: Room: 105 Gender: Male [employer] Architect: : 1965 Requested By: Malka Magana Order Number: [id number] Chhaya MD: Neda Ortega M.D. Measurements Intervals [place] Rate: 86 P: 32 KS: 154 QRS: 56 QRSD: 105 T: 7 QT: 347 QTc: 415 Interpretive Statements SINUS RHYTHM Compared to ECG 05/29/2024 12:45:54 No significant changes Electronically Signed On 05-29-2024 20:29:40 BOXING TRAINER by Neda Ortega M.D. [email or web address]
[2024-05-29] MEDS: carvedilol 6.25 mg Tablet PO (17:45)
[2024-05-29 20:32] LABS: Glucose Point of Care 131 mg/dL (70-110)
[2024-05-29 21:00] LABS: Troponin 5 6HR 136.6 ng/L (0-15); Troponin 5 6HR Delta 94.6 ng/L (0-12)
[2024-05-30] VITALS (56 sets, daily range): BP systolic 104–144; BP diastolic 67–86; PULSE 75–100; RESP 10–22; TEMP 36.6–37.2; O2SAT 91–100
[2024-05-30 03:09] LABS: Basophils % 0.5 %; Eosinophils # 0.2 10^3/uL (0.0-0.8); Eosinophils % 2.2 %; Hematocrit 35.3 % (37-53); Lymphocytes # 1.5 10^3/uL (0.8-4.8); Mean Corpuscular Hemoglobin 19.9 pg (27-33); Mean Corpuscular Volume 70.9 fl (82-101); Mean Platelet Volume 10.1 fL (7.4-10.4); Monocytes # 0.8 10^3/uL (0.2-0.9); Monocytes % 10.3 %; Neutrophils # 5.47 10^3/uL (1.8-7.7); Neutrophils % 67.9 %; Nucleated Red Blood Cells % 0 %; Platelet Count 252 10^3/cmm (157-399); Red Blood Count 4.98 10^6/uL (3.85-5.65); Red Cell Distribution Width 15.8 % (12.1-15.1); White Blood Count 8.06 10^3/uL (3.29-11.43)
[2024-05-30 03:34] LABS: Anion Gap 20.8 (5-19); Blood Urea Nitrogen 17 mg/dL (6-20); Calcium 9.6 mg/dL (8.5-10.5); Carbon Dioxide 23 mmol/L (22-29); Chloride 100 mmol/L (98-107); Creatinine Clr Calc Pharmacy 222.1421; Glomerular Filtration Rate 171.4 mL/min (90-130); Glucose 99 mg/dL (65-115); Osmolality Calculated 292 mOsm/kg (285-295); Potassium 3.8 mmol/L (3.5-5.1); Sodium 140 mmol/L (136-145)
[2024-05-30 06:19] LABS: Glucose Point of Care 118 mg/dL (70-110)
[2024-05-30] MEDS: carvedilol 6.25 mg Tablet PO (08:12)
[2024-05-30] MEDS: atorvastatin 40 mg Tablet 80 MG PO (08:12)
[2024-05-30] MEDS: levothyroxine 50 mcg Tablet PO (08:12)
[2024-05-30] MEDS: clopidogrel 75 mg Tablet PO (08:12)
[2024-05-30] MEDS: aspirin 81 mg EC Tablet PO (08:12)
[2024-05-30 10:46] LABS: Troponin T (5th) Once 156 ng/L (0-15)
--- NOTE | 2024-05-30 11:08 | W.PM.OPSUD ---
Surgery/Procedure H&P Update DATE OF PROCEDURE: May 30, 2024 DATE H&P PERFORMED: 05/29/24 H&P UPDATE INFORMATION: I have reviewed H&P completed within last 30 days, I have examined patient prior to procedure and Changes to prior documentation as noted here CHANGES TO PREVIOUS DOCUMENTATION: Patient had significant chest discomfort that lasted 1 hour yesterday. His troponins have been trending up. Plan for coronary angiogram with possible PCI PREOP DIAGNOSIS: NSTEMI PRIMARY INDICATION FOR PROCEDURE: NSTEMI PLANNED PROCEDURE: Left heart cath with possible percutaneous coronary intervention PATIENT REASSESSED PRIOR TO SEDATION, WITH NO CHANGE NOTED: Yes PHYSICAL EXAM: alert, oriented x 3, clear to auscultation bilaterally and regular rate & rhythm AIRWAY EVAL/ANESTHESIA PLAN: normal airway, ASA III, Local Anesthesia, Risks, benefits & alternatives of sedation and/or procedure discussed and Patient agrees to continue as planned ADDITIONAL INFORMATION: Moderate sedation
--- NOTE | 2024-05-30 11:25 | PC.NURSE ---
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
--- NOTE | 2024-05-30 12:04 | PM.PROC ---
Procedure Note: Date of procedure: 05/30/24 Pre-procedure diagnosis: NSTEMI Post-procedure diagnosis: other Procedure: Left main artery is patent. LAD prior stent is patent. Diagonal artery has mid vessel 70% stenosis. Medical therapy. Patent prior stents in RCA and OM. Aggressive medical therapy Performing Provider: Delbert Rick Estimated blood loss (mL): 5 Complications: None Condition: stable Disposition: floor Coding Level of Care Code [facility]
--- NOTE | 2024-05-30 12:18 | PM.DCS ---
Discharge Providers Date of Admission: 05/29/24 14:59 Date of Discharge: May 30, 2024 Attending Provider at Admission: Sintia Damon Attending Provider at Discharge: Casey Tavares MD Consults: Cardiology: Dr. Rick Primary Care Provider: Fortunato Hinojosa DO Diagnoses at Discharge Discharge Diagnosis (1) Chest pain: Status: Acute (2) Non-ST elevation (NSTEMI) myocardial infarction: Status: Acute (3) Coronary artery disease: Status: Acute Reason for Visit Reason for Visit: had chest pain, passing out Brief History: History as per HPI: 59-year-old male with a past medical history of coronary artery disease status post recent coronary angiogram on 05/20/2024 with placement of drug-eluting stents to mid LAD 90-95% stenosis and distal RCA 80% stenosis, hypertension, hyperlipidemia, and diabetes mellitus presents with chest pain on his first day back to work. The patient works at a [employer] but denies any heavy lifting. He reports feeling sick and nearly passing out around 06:30, with an episode of emesis. He then developed chest pain around 08:00, described as diffuse pain across the chest associated with pain on breathing. He took a nitroglycerin with initial relief, but pain returned on the right side. Pain persisted while driving home but resolved after about 30 minutes of rest. He denies any lightheadedness, dizziness, radiation of pain, fevers, chills, abdominal pain, diarrhea or constipation.Of note, the patient was recently started on Ozempic for diabetes management on 05/23/2024, with the first dose taken on 05/24/2024. No other new or different foods were consumed. Patient was chest pain free at the time of my eval. Hospital Course Hospital Course Patient was admitted to the hospital further evaluation and management. Given history of recent PCI cardiology was consulted. Troponin levels were checked. Patient had a positive delta because of which she underwent cardiac angiogram on 05/30 which showed patent left main, patent LAD, RCA and OM prior stents, diagonal mid vessel 70% stenosis for which medical therapy was recommended. He has been discharged in hemodynamically stable condition on oral DAPT. Imdur has been added to his medication list. Physical Exam Narrative: General: Well-appearing male, in no acute distress HEENT: Grossly unremarkable Neck: Supple, no lymphadenopathy, no JVD, no carotid bruits Cardiovascular: Regular rate and rhythm, normal S1 and S2, no murmurs, rubs or gallops Respiratory: Clear to auscultation bilaterally, no wheezes, rales or rhonchi Abdomen: Soft, non-tender, non-distended, no organomegaly, normoactive bowel sounds Extremities: No edema, no cyanosis, 2+ pulses throughout Neurologic: Alert and oriented x3, cranial nerves II-XII grossly intact, normal strength and sensation in all extremities, normal gait Skin: Warm, dry, intact, no rashes or lesions Psychiatric: Normal Discharge Data Studies Completed and Pending Completed Studies During Hospitalization Category Date Time Status XR chest 1V portable [id number] Stat Exams 05/29/24 11:10 Completed Pending at discharge Category Date Time 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 No acute cardiopulmonary finding. Laboratory Results WBC 8.06 10^3/uL (3.29-11.43) 05/30/24 02:37 RBC 4.98 10^6/uL (3.85-5.65) 05/30/24 02:37 Hgb 9.90 g/dL (11.27-16.99) L 05/30/24 02:37 Hct 35.3 % (37-53) L 05/30/24 02:37 MCV 70.9 fl (82-101) L 05/30/24 02:37 MCH 19.9 pg (27-33) L 05/30/24 02:37 MCHC 28.0 g/dL (30-55) L 05/30/24 02:37 RDW 15.8 % (12.1-15.1) H 05/30/24 02:37 Plt Count 252 10^3/cmm (157-399) 05/30/24 02:37 MPV 10.1 fL (7.4-10.4) 05/30/24 02:37 Neut % (Auto) 67.9 % 05/30/24 02:37 Lymph % (Auto) 19.0 % 05/30/24 02:37 [place] % (Auto) 10.3 % 05/30/24 02:37 Eos % (Auto) 2.2 % 05/30/24 02:37 Baso % (Auto) 0.5 % 05/30/24 02:37 Neut # (Auto) 5.47 10^3/uL (1.8-7.7) 05/30/24 02:37 Lymph # (Auto) 1.5 10^3/uL (0.8-4.8) 05/30/24 02:37 [place] # (Auto) 0.8 10^3/uL (0.2-0.9) 05/30/24 02:37 Eos # (Auto) 0.2 10^3/uL (0.0-0.8) 05/30/24 02:37 Baso # (Auto) 0.0 10^3/uL (0.0-0.1) 05/30/24 02:37 Nucleated RBC % (auto) 0 % 05/30/24 02:37 Nucleated RBCs # 0.0 /100WBC 05/30/24 02:37 Sodium 140 mmol/L (136-145) 05/30/24 02:37 Potassium 3.8 mmol/L (3.5-5.1) 05/30/24 02:37 Chloride 100 mmol/L (98-107) 05/30/24 02:37 Carbon Dioxide 23 mmol/L (22-29) 05/30/24 02:37 Anion Gap 20.8 (5-19) H 05/30/24 02:37 BUN 17 mg/dL (6-20) 05/30/24 02:37 Creatinine 0.5 mg/dL (0.7-1.2) L 05/30/24 02:37 GFR Calculation 171.4 mL/min (90-130) H 05/30/24 02:37 Glucose 99 mg/dL (65-115) 05/30/24 02:37 POC Glucose 118 mg/dL (70-110) H 05/30/24 06:06 Calculated Osmolality 292 mOsm/kg (285-295) 05/30/24 02:37 Calcium 9.6 mg/dL (8.5-10.5) 05/30/24 02:37 Total Bilirubin 0.3 mg/dL (0.15-1.2) 05/29/24 11:31 AST 16 U/L (0-40) 05/29/24 11:31 ALT 19 U/L (0-41) 05/29/24 11:31 Alkaline Phosphatase 145 U/L (40-130) H 05/29/24 11:31 Troponin T 5th Gen ng/L 156 ng/L (0-15) H* 05/30/24 02:37 Troponin T Baseline 42 ng/L (0-15) H 05/29/24 11:31 Troponin T 120 Minute 68.70 ng/L (0-15) H 05/29/24 13:57 Delta Troponin T 26.70 ABS# (0-10) H* 05/29/24 13:57 Troponin T Hi Sens 6Hr 136.6 ng/L (0-15) H 05/29/24 20:20 Troponin T Hi Sens 6Hr Delta 94.6 ng/L (0-12) H* 05/29/24 20:20 NT-Pro-B Natriuret Pep < 36 pg/mL (0-125) 05/29/24 11:31 Total Protein 7.7 g/dL (6.6-8.7) 05/29/24 11:31 Albumin 5.0 g/dL (3.5-5.2) 05/29/24 11:31 Globulin 2.7 g/dL (1.3-4.6) 05/29/24 11:31 Influenza A (PCR) Negative (Negative) 05/29/24 11:53 Influenza Type B (PCR) Negative (Negative) 05/29/24 11:53 RSV (PCR) Negative (Negative) 05/29/24 11:53 SARS-CoV-2 (PCR) Negative (Negative) 05/29/24 11:53 Vitals Last Vital Signs Temp 98.4 F 05/30/24 07:53 Pulse 77 05/30/24 07:53 Resp 14 05/30/24 07:53 BP 122/77 05/30/24 07:53 Pulse Ox 96 05/30/24 07:53 O2 Del Method Room Air 05/30/24 07:53 Discharge Plan Discharge Patient Disposition: Home Condition: Stable Prescriptions: New isosorbide mononitrate 30 mg tablet extended release 24 hr 30 mg PO DAILY Qty: 30 0RF Continued Jardiance 25 mg tablet 25 mg PO DAILY metformin 1,000 mg tablet 1,000 mg PO BID hydrocodone-acetaminophen 7.5-325 mg/15 mL solution 15 ml PO Q6H PRN (Reason: Pain) nitroglycerin 0.4 mg tablet, sublingual 0.4 mg sublingual Q5M PRN (Reason: chest pain) Qty: 25 3RF Rx Instructions: do not exceed 3 doses per episode pantoprazole 20 mg tablet,delayed release (DR/EC) 20 mg PO DAILY Qty: 90 3RF levothyroxine 50 mcg tablet 50 mcg PO DAILY multivit with wdd-GL-maffbseq 0.4-600 mg-mcg Tablet 1 tab PO DAILY niacinamide 500 mg Tablet 500 mg PO BID carvedilol 6.25 mg Tablet 6.25 mg PO BID Qty: 60 3RF clopidogrel 75 mg tablet 75 mg PO DAILY Qty: 90 3RF Rx Instructions: Take 1 tablet by mouth once daily aspirin [Adult Aspirin Regimen] 81 mg tablet,delayed release (DR/EC) 81 mg PO DAILY Qty: 90 3RF Changed rosuvastatin 20 mg tablet 40 mg PO DAILY Qty: 90 2RF Discharge Orders: Discharge Order (Routine); Ordered 05/30/24 Ordered By: Casey Tavares Referrals: Trista Vergara FNP [Nurse Practitioner] - 7-10 days (We have notified your physician's clinic of the need for a follow-up appointment to be scheduled. If you have not heard from them within the next 2 business days, please call them directly. ) Fortunato Hinojosa DO [Primary Care Provider] - 06/07/24 2:00 pm Discharge Diet: Cardiac Discharge Activity: Resume usual activity and Increase activity as tolerated Patient Instructions: Isosorbide Mononitrate (By mouth) (Imdur, Imdur ER, Ismo), Dyspnea (DC), Heart Catheterization (DC), Chest Pain Stoplight, Opioid Safety, Post Angiogram Home Care Instructions Discharge Attestations Time Spent in Discharge Care*: greater than 30 min Specific Discharge Activities: educating patient, discussing with pcp/other providers, discussing with case management coordinator/social workers/dc planners, documenting/other paperwork and evaluating patient/reviewing data Status at Discharge: Cognitive status at discharge: cognitively intact, Behavioral status at discharge: cooperative, Functional status at discharge: independent ambulation, Overall status at discharge: patient is back to baseline Quality Metrics Clinical Quality Measures [ No reported AMI, CVA or VTE this stay] Coding Level of Care Code 48426 Total time (in minutes) for Discharge: 60 Diagnoses Chest pain R07.9 Non-ST elevation (NSTEMI) myocardial infarction I21.4 Coronary artery disease I25.10
[2024-05-30 12:54] LABS: Glucose Point of Care 112 mg/dL (70-110)
--- NOTE | 2024-05-30 13:02 | PC.NURSE ---
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
--- NOTE | 2024-05-30 16:03 | PC.NURSE ---
Addendum entered by Kimber Yuan RN 05/30/24 16:09: Nitro SL refill was called into [facility] pharmacy. Original Note: Provider is notified that Mr Johnie's nitro SQ is needing a refill. He said that his are from 2022. Provider ordered to call it in for him.
--- NOTE | 2024-05-30 23:40 | P.PN_ITS ---
Subjective 2 Subjective: Patient doing well. No chest pain. Coronary angiogram showed patent prior stents. Small to medium sized diagonal artery has 70% stenosis. Medical management. Vitals/I&O/Wt Last Vital Signs Temp 98.9 F 05/30/24 16:00 Pulse 83 05/30/24 16:14 Resp 15 05/30/24 16:14 BP 109/68 05/30/24 16:14 Pulse Ox 91 05/30/24 16:14 O2 Del Method Room Air 05/30/24 16:00 05/30/24 05/30/24 05/31/24 14:59 22:59 06:59 Intake Total 240 / 240 Balance 240 / 240 Weight last 48 hrs Weight 241 lb 3.2 oz Weight 244 lb Weight 243 lb Physical Exam 2 Narrative: GENERAL: Patient is alert, awake and oriented x3. [] NECK: No jugular vein distension. [] HEENT: No cyanosis. No icterus. No pallor. [] HEART: Regular S1 and S2. No murmur, rub or gallop. [] LUNGS: Clear to auscultate bilaterally. [] CENTRAL NERVOUS SYSTEM: Grossly nonfocal. [] EXTREMITIES: Lower extremities with 1+ edema bilaterally. Data 05/30/24 02:37 05/30/24 02:37 A&P Assessment and plan (1) Chest pain: (2) Non-ST elevation (NSTEMI) myocardial infarction: (3) Coronary artery disease: Plan Coronary angiogram showed patent prior stents. Has diagonal artery disease but given size of vessel, medical therapy. Can start isosorbide mononitrate. Continue aspirin and plavix Thank you for involving us with care of this patient. Patient is stable to be discharged from cardiology standpoint. Please call with questions. PDMP PDMP Reviewed: Not Reviewed Attestations 2 Medical Necessity Statement*: Care expected to cross 2 midnights. Coding Level of Care Code Acute Code for [facility] Diagnoses Chest pain R07.9 Non-ST elevation (NSTEMI) myocardial infarction I21.4 Coronary artery disease I25.10
== END 2024-05-30 16:45 | disposition home or self-care (01) ==
LOC: ER 14:42 → CSU 15:13
PROVIDERS: Internal Medicine; Admitting Provider Hospitalist; Emergency Provider Emergency Medicine; PCP Internal Medicine; Visit Provider Student in an Organized Health Care Education/Training Program
DX: I21.4 Non-ST elevation (NSTEMI) myocardial infarction (principal); I25.10 Atherosclerotic heart disease of native coronary artery without angina pectoris; I10 Essential (primary) hypertension; E03.9 Hypothyroidism, unspecified; E11.9 Type 2 diabetes mellitus without complications; K21.9 Gastro-esophageal reflux disease without esophagitis; Z95.5 Presence of coronary angioplasty implant and graft; Z79.84 Long term (current) use of oral hypoglycemic drugs; Z79.899 Other long term (current) drug therapy; Z79.890 Hormone replacement therapy; Z88.8 Allergy status to other drugs, medicaments and biological substances; E78.5 Hyperlipidemia, unspecified; F17.220 Nicotine dependence, chewing tobacco, uncomplicated; Z11.52 Encounter for screening for COVID-19; Z79.82 Long term (current) use of aspirin
CPT/HCPCS: 36415; 36416; 71045; 80048; 80053; 82962; 83880; 84484; 85025; 87637; 93005; 93454; 96372; 99152; 99153; 99285; C1769; C1887; C1894; G0378; J1200; J1644; J1650; J2250; J3010; J3490; Q9967

== ENCOUNTER 2024-08-07 14:55 | Outpatient (CLI) | payer OTHER, SELFPAY | END 2024-08-07 14:56 | disposition home or self-care (01) | LOC: SLEEP 14:57 | PROVIDERS: PCP Internal Medicine; Visit Provider Family Medicine | DX: G47.33 Obstructive sleep apnea (adult) (pediatric) (principal); G47.36 Sleep related hypoventilation in conditions classified elsewhere | CPT/HCPCS: G0399 ==

== ENCOUNTER → 2024-12-28 15:45 | Outpatient (BNVA) | payer OTHER, SELFPAY | PROVIDERS: PCP Internal Medicine; Visit Provider Internal Medicine | DX: I10 Essential (primary) hypertension (principal); I25.10 Atherosclerotic heart disease of native coronary artery without angina pectoris; R07.9 Chest pain, unspecified; R06.09 Other forms of dyspnea | CPT/HCPCS: 36415; 80048; 83880; 84439; 84443 ==

== ENCOUNTER → 2025-03-05 11:57 | Outpatient (BNVA) | payer OTHER, SELFPAY | PROVIDERS: PCP Internal Medicine; Visit Provider Nurse Practitioner Family | DX: R07.9 Chest pain, unspecified (principal) | CPT/HCPCS: 93005 ==